=== PATIENT | female | born 1950 | race Caucasian/White ===

== ENCOUNTER 2021-10-26 16:33 | Emergency (ER) | payer MEDICARE, SELFPAY ==
[2021-10-26 16:59] VITALS: BP 168/101; PULSE 97; RESP 16; TEMP 36.6; O2SAT 98; BMI 47.7
--- NOTE | 2021-10-26 19:26 | ED.SKABFB ---
HPI - Skin/Abscess/Foreign Bdy General Chief complaint: Skin/Abscess/Foreign Body Stated complaint: Cellulitis in Leg and in Lt Forearm Time Seen by Provider: 10/26/21 19:26 Mode of arrival: Family Vehicle Related Data Home Medications Medication Instructions Recorded Confirmed Progesterone/Vitamin E 1 cre TP QHS ##0 12/23/11 (#PROGESTERONE ALL NATURAL 1000 MG-400 IU) clobetasol 0.05 % topical spray 0.05 % topical PRN #59 mL 12/23/11 (Clobex) Allergies Allergy/AdvReac Type Severity Reaction Status Date / Time Ampicillin Allergy Severe Hives, Uncoded 10/26/21 17:06 Itching, Swelling Cephalosporin Allergy Severe Hives, Uncoded 10/26/21 17:06 Itching , Swelling Morphine Allergy Severe Hives, Uncoded 10/26/21 17:06 Itching, Swelling PARSNIPS Allergy Severe mouth Uncoded 10/26/21 17:06 sores, swelling Penicillin Allergy Severe Hives, Uncoded 10/26/21 17:06 Itching, Swelling Propoxyphene Allergy Severe Hives, Uncoded 10/26/21 17:06 Itching, Swelling spices-fennel anise dill Allergy Severe Hives Uncoded 10/26/21 17:06 coriander(cilantro) faraz cumin SULFA (sulfonamide) Allergy Severe Hives, Uncoded 10/26/21 17:06 Itching, Swelling herbs cicely & chervil Allergy Intermediate Uncoded 10/26/21 17:06 CARROTS Allergy Unknown Uncoded 10/26/21 17:06 CELERY Allergy Unknown Uncoded 10/26/21 17:06 PARSLEY Allergy Unknown Uncoded 10/26/21 17:06 Patient History Social History Smoking Status: Never smoker Smoking Status: Never smoker Substance Use Type: does not use Exam Initial Vital Signs Initial Vital Signs: Vital Signs Temperature 98 F 10/26/21 16:59 Pulse Rate 97 H 10/26/21 16:59 Respiratory Rate 16 10/26/21 16:59 Blood Pressure 168/101 H 10/26/21 16:59 Pulse Oximetry 98 10/26/21 16:59 Oxygen Delivery Method 10/26/21 16:59 Course Vital Signs Vital signs: Vital Signs - 8 hr 10/26/21 16:59 Temperature 98 F Pulse Rate 97 H Respiratory Rate 16 Blood Pressure 168/101 H Pulse Oximetry 98 Oxygen Delivery Method Room Air Discharge Plan Departure Prescriptions: No Action clobetasol [Clobex] 125 ML spray,non-aerosol 0.05 % Topical PRN Qty: 59 Progesterone/Vitamin E (#PROGESTERONE ALL NATURAL 1000 MG-400 IU) 1 cre TP QHS Qty: 0 Referrals: Jana Weber MD [Primary Care Provider] -
--- NOTE | 2021-10-26 19:52 | ED_ITS ---
HPI - Skin/Abscess/Foreign Bdy <Janett Reyes, [facility] - Last Filed: 10/26/21 20:04> General Chief complaint: Skin/Abscess/Foreign Body Stated complaint: Cellulitis in Leg and in Lt Forearm Time Seen by Provider: 10/26/21 19:26 Mode of arrival: Family Vehicle History of Present Illness HPI narrative: This is a 71-year-old female with history of multiple allergies, obesity, prior cellulitis, venous stasis ulcers, hypothyroidism, who presents to the emergency department complaining of a rash on her lower left leg and her left forearm. She states the rash on her lower left leg is associated with her venous stasis ulcers, states that it is pruritic when her compression stockings are not on, she has been applying Betadine, clobetasol, and antibiotic ointment. She states that it has small bumps on it, she has a history of cellulitis, states it is warm to touch, and tender when she takes off her stockings. She states that it clears up after a couple of days of ointments, and then returns, she states that it has been bothersome and worsening for approximately 10 days. Patient endorses a rash on her left forearm which has been there only for two days, states it is pruritic, raised, erythematous, and she is concerned it is due to an allergy. Patient states that she is allergic to all eyes in medications, dyes in clothing, especially blue and green. She has multiple food allergies as well including herbs, dairy, and multiple antibiotic allergies including sulfa, penicillin, cephalosporins, and penicillins and additionally, morphine. She denies any shortness of breath, chest pain, difficulty breathing, wheezing, changes to her routine, fever, any exquisite tenderness or unilateral swelling of her lower extremities. She denies any history of diabetes, she is pleasant, quite talkative, denies any recent illness. Related Data Home Medications Medication Instructions Recorded Confirmed Progesterone/Vitamin E 1 cre TP QHS ##0 12/23/11 (#PROGESTERONE ALL NATURAL 1000 MG-400 IU) clobetasol 0.05 % topical spray 0.05 % topical PRN #59 mL 12/23/11 (Clobex) Previous Rx's Medication Instructions Recorded doxycycline hyclate 100 mg tablet 100 mg PO BID 7 days #14 tabs 07/29/22 hydroxyzine HCl 25 mg tablet 25 mg PO BID PRN itching #14 tabs 10/26/21 mupirocin 2 % topical ointment 1 applic topical BID PRN lower 10/26/21 extremity venous stasis #22 grams triamcinolone acetonide 0.1 % 1 applic topical DAILY 5 days a 10/26/21 topical ointment week for rash #80 grams Allergies Allergy/AdvReac Type Severity Reaction Status Date / Time Ampicillin Allergy Severe Hives, Uncoded 10/26/21 17:06 Itching, Swelling Cephalosporin Allergy Severe Hives, Uncoded 10/26/21 17:06 Itching , Swelling Morphine Allergy Severe Hives, Uncoded 10/26/21 17:06 Itching, Swelling PARSNIPS Allergy Severe mouth Uncoded 10/26/21 17:06 sores, swelling Penicillin Allergy Severe Hives, Uncoded 10/26/21 17:06 Itching, Swelling Propoxyphene Allergy Severe Hives, Uncoded 10/26/21 17:06 Itching, Swelling spices-fennel anise dill Allergy Severe Hives Uncoded 10/26/21 17:06 coriander(cilantro) faraz cumin SULFA (sulfonamide) Allergy Severe Hives, Uncoded 10/26/21 17:06 Itching, Swelling herbs cicely & chervil Allergy Intermediate Uncoded 10/26/21 17:06 CARROTS Allergy Unknown Uncoded 10/26/21 17:06 CELERY Allergy Unknown Uncoded 10/26/21 17:06 PARSLEY Allergy Unknown Uncoded 10/26/21 17:06 Review of Systems <GEOVANY Meng - Last Filed: 10/26/21 20:04> Review of Systems Narrative: General: denies fever, chills, malaise, sweats, fatigue Head/Neck: denies headache, neck pain, dizziness Eyes: denies visual changes, eye pain Cardio: denies chest pain, palpitations, edema Respiratory: denies dyspnea, cough, orthopnea GI: denies abdominal pain, nausea, vomiting, or diarrhea : denies dysuria, hematuria, urinary retention, frequency or incontinence MSK: denies joint pain, muscle weakness Skin: Endorses rash to her left lower extremity and to her left forearm with itching, denies any other skin lesions, states that she was using antibiotic ointment on her left lower extremity for venous stasis ulcers which have healed. Neuro: denies numbness, tingling Patient History <GEOVANY Meng - Last Filed: 10/26/21 20:04> Social History Smoking Status: Never smoker Smoking Status: Never smoker Substance Use Type: does not use Exam <GEOVANY Meng - Last Filed: 10/26/21 20:04> Narrative Exam Narrative: Independently reviewed vitals signs and nursing notes. General: cooperative, comfortable, in no acute distress, well groomed, obese Head: atraumatic, symmetrical facial expressions Neck: supple Eyes: equal round and reactive, EOMI, conjunctiva normal Nose: nares patent, no rhinorrhea Mouth/Throat: moist mucus membranes Cardiovascular: regular rate and rhythm, edematous lower extremities without pitting, warm extremities Respiratory: normal effort, able to speak in complete sentences, no audible wheezing, stridor, or rales. No retractions or tachypnea. GI: abdomen soft, nontender to palpation, nondistended, no masses, no exquisite tenderness with exam, without guarding or rebound. MSK: moves all extremities, neurovascularly intact, no weakness, normal tone Skin: brisk capillary refill, round 2 cm rash on volar aspect of left forearm which is pruritic, does not show any streaking or erythema which tracks proximally, this is most likely contact dermatitis related to exposure to an allergen, left lower extremity with mild maculopapular rash, mild warmth, no significant erythema but mildly pink, no tracking erythema proximally, no fluctuance, open wound, or drainage. No significant discoloration. Neuro: normal speech and cognition, A&O x3 Psych: mental status is grossly normal, congruent mood, normal affect, pleasant and cooperative Initial Vital Signs Initial Vital Signs: Vital Signs Temperature 98 F 10/26/21 16:59 Pulse Rate 97 H 10/26/21 16:59 Respiratory Rate 16 10/26/21 16:59 Blood Pressure 168/101 H 10/26/21 16:59 Pulse Oximetry 98 10/26/21 16:59 Oxygen Delivery Method 10/26/21 16:59 <Antony Givens DO - Last Filed: 10/31/21 00:36> Initial Vital Signs Initial Vital Signs: Vital Signs Temperature 98 F 10/26/21 16:59 Pulse Rate 97 H 10/26/21 16:59 Respiratory Rate 16 10/26/21 16:59 Blood Pressure 168/101 H 10/26/21 16:59 Pulse Oximetry 98 10/26/21 16:59 Oxygen Delivery Method 10/26/21 16:59 Course <GEOVANY Meng - Last Filed: 10/26/21 20:04> Orders Ordered: Discontinued Medications Doxycycline Hyclate (Doxycycline Hyclate 100 Mg Tablet) 100 mg PO NOW ONE Stop: 10/26/21 19:32 Last Admin: 10/26/21 20:27 Dose: 100 mg Documented By: DAVID Doxycycline Hyclate (Doxycycline Hyclate 100 Mg Tablet) 100 mg PO NOW ONE Stop: 10/26/21 20:01 Last Admin: 10/26/21 20:31 Dose: Not Given Documented By: DAVID Hydroxyzine Pamoate (Hydroxyzine Pamoate 25 Mg Capsule) 25 mg PO NOW ONE Stop: 10/26/21 19:34 Last Admin: 10/26/21 20:31 Dose: Not Given Documented By: DAVID Hydroxyzine Pamoate (Hydroxyzine Pamoate 25 Mg Capsule) 25 mg PO NOW ONE Stop: 10/26/21 20:01 Last Admin: 10/26/21 20:31 Dose: Not Given Documented By: DAVID Vital Signs Vital signs: Vital Signs - 8 hr 10/26/21 16:59 Temperature 98 F Pulse Rate 97 H Respiratory Rate 16 Blood Pressure 168/101 H Pulse Oximetry 98 Oxygen Delivery Method Room Air <Antony Givens DO - Last Filed: 10/31/21 00:36> Orders Ordered: Discontinued Medications Doxycycline Hyclate (Doxycycline Hyclate 100 Mg Tablet) 100 mg PO NOW ONE Stop: 10/26/21 19:32 Last Admin: 10/26/21 20:27 Dose: 100 mg Documented By: DAVID Doxycycline Hyclate (Doxycycline Hyclate 100 Mg Tablet) 100 mg PO NOW ONE Stop: 10/26/21 20:01 Last Admin: 10/26/21 20:31 Dose: Not Given Documented By: DAVID Hydroxyzine Pamoate (Hydroxyzine Pamoate 25 Mg Capsule) 25 mg PO NOW ONE Stop: 10/26/21 19:34 Last Admin: 10/26/21 20:31 Dose: Not Given Documented By: DAVID Hydroxyzine Pamoate (Hydroxyzine Pamoate 25 Mg Capsule) 25 mg PO NOW ONE Stop: 10/26/21 20:01 Last Admin: 10/26/21 20:31 Dose: Not Given Documented By: DAVID Vital Signs Vital signs: Vital Signs - 8 hr 10/26/21 16:59 Temperature 98 F Pulse Rate 97 H Respiratory Rate 16 Blood Pressure 168/101 H Pulse Oximetry 98 Oxygen Delivery Method Room Air MDM - Skin/Abscess/Foreign Bdy <Janett Reyes, [employer] - Last Filed: 10/26/21 20:04> MDM Narrative Medical decision making narrative: This is a pleasant 71-year-old female who has a history of multiple allergies including all dyes,, multiple antibiotic allergies, food allergies, and history of cellulitis in the lower extremity who presents to the emergency department with 10 days of left lower extremity rash which is concerning for cellulitis, and her left forearm rash which has only been there for two days and is well- circumscribed in a 2 cm wheal, is mildly raised and erythematous. Patient appears to have cellulitis on the left lower extremity, it is warm to palpation, edematous but she is obese so it is difficult to assess but is not pitting, she is wearing compression stockings, does not have any open wounds on her left lower extremity, mild warmth and pink in color, pruritic, and patient has been t reating at home with topical iodine and antibiotic ointment. She states that she is out of the antibiotic ointment soon and is concerned about pruritus. Her left forearm appears to be contact dermatitis, she thinks that she could have come into contact with any of her allergens easily she states this happens frequently. She was prescribed triamcinolone cream for the contact dermatitis, mupirocin ointment for her left lower extremity rash and for any open wounds that present, hydroxyzine for her pruritus, and doxycycline b.i.d. dosing for seven days for cellulitis. She is allergic to most all other antibiotics. Encouraged patient to stay hydrated, elevate her legs and continue wear compression stockings, keep her legs clean, dry, and to return to the emergency department for any worsening of the swelling and pain, sensation changes fever, or any other significant concern. She is afebrile, does not have any other signs of systemic illness, she is not nauseated or having any vomiting, she is pleasant, denies any significant pruritus at this time, she was treated with hydroxyzine in the emergency department and doxycycline and encouraged to follow-up with her primary care provider. Patient is appropriate and amenable to discharge home. Vital signs are stable on repeat examination is unremarkable. Patient has been informed of results. Patient has been given strict return to ER precautions for any new or worsening symptoms. Patient understands to follow up closely with outpatient providers as instructed. Patient understands plan and agrees to discharge home. All questions and concerns answered at this time. Discharge Plan Departure Patient Disposition: Home Clinical Impression: Cellulitis Qualifiers: Site of cellulitis: extremity Site of cellulitis of extremity: lower extremity Laterality: left Qualified Code(s): L03.116 - Cellulitis of left lower limb Contact dermatitis Qualifiers: Contact dermatitis type: allergic Contact dermatitis trigger: dye Qualified Code(s): L23.4 - Allergic contact dermatitis due to dyes Instructions: DI for Cellulitis -- Adult, Contact Dermatitis Activity Restrictions/Additional Instructions: *You have been diagnosed with cellulitis of your left lower extremity and likely contact dermatitis of the left forearm. Please apply a small combination of the mupirocin ointment combined with the steroid ointment. Continue to use compression stockings on your lower extremities, remember to changes in daily and to apply your ointments morning and night. Please take the weekend off of your steroid ointment, your skin would like a vacation for a couple of days. Please take the antibiotic twice a day for the next seven days, this will help treat your leg cellulitis and follow-up with your regular doctor at your next scheduled follow-up. Please elevate your legs frequently, continue to stay active as best as you are able, avoid any allergens as best as you can, and return to the emergency department for any worsening or unilateral swelling of your lower extremities. I hope you feel better soon. *What to do: *Please continue to take your regular medications as directed. [ x] New medication prescriptions sent to your pharmacy: [ [facility]] [ ] New medication written as a paper prescription [ ] No new medications given *Please follow up with your primary care provider in 2-3 days, call for an appointment. Let them know you were seen in the Emergency Department and that we asked that you be seen for follow-up. We will electronically transmit a record of today's note if your PCP is in our system *If you do not have a primary care provider please contact [phone] to establish care with one of the [facility] primary care providers. *Return to Emergency Department if you should have any new, worsening or concerning symptoms, such as [fever greater than 101F, chills, worsening pain, persistent vomiting or other bothersome symptoms] Prescriptions: New mupirocin 2 % ointment 1 applic topical BID PRN (Reason: lower extremity venous stasis) Qty: 22 2RF hydroxyzine HCl 25 mg tablet 25 mg PO BID PRN (Reason: itching) Qty: 14 0RF triamcinolone acetonide 0.1 % ointment 1 applic topical DAILY Qty: 80 0RF doxycycline hyclate 100 mg tablet 100 mg PO BID 7 Days Qty: 14 0RF No Action clobetasol [Clobex] 125 ML spray,non-aerosol 0.05 % Topical PRN Qty: 59 Progesterone/Vitamin E (#PROGESTERONE ALL NATURAL 1000 MG-400 IU) 1 cre TP QHS Qty: 0 Referrals: Beau Allen DO [Family Provider] - Jana Weber MD [Primary Care Provider] - Visit Report Forms: Patient Portal/API <Antony Givens DO - Last Filed: 10/31/21 00:36> [facility] Attestation: I was immediately available in the department for consultation. This documentation has been reviewed and I agree with assessment and plan. Supervised by Antony Givens DO
--- NOTE | 2021-10-26 20:06 | PC.NURSE ---
Pt wearing compression hose, she doesn't like to take them down because it makes her leg itch. assessment deferred to provider
[2021-10-26] MEDS: DOXYCYCLINE HYCLATE 100 MG TABLET PO (20:27)
[2021-10-26 20:59] VITALS: PULSE 69; RESP 16; TEMP 36.5; O2SAT 100
== END 2021-10-26 20:45 | disposition home or self-care (01) ==
PROVIDERS: Emergency Provider Nurse Practitioner Critical Care Medicine; Family Provider Family Medicine; PCP Family Medicine
DX: L03.116 Cellulitis of left lower limb (principal); L23.4 Allergic contact dermatitis due to dyes
CPT/HCPCS: 99283

== ENCOUNTER 2022-05-03 14:39 | Inpatient (IN) | payer MEDICARE, SELFPAY ==
[2022-05-03] VITALS (32 sets, daily range): BP systolic 114–182; BP diastolic 65–106; PULSE 57–177; RESP 13–56; TEMP 36.3–36.5; O2SAT 96–99; BMI 44.3; BMI 44.2
--- NOTE | 2022-05-03 14:46 | DI.RAD.S_ITS ---
PROCEDURE: XR CHEST 1V INDICATIONS: eval for PNA TECHNIQUE: One view of the chest was acquired. COMPARISON: [facility], , CHEST 2 VIEW, 12/23/2011, 20:54. FINDINGS: Surgical changes and devices: Cholecystectomy clips. Lungs and pleura: Lungs are clear. No pleural effusions or pneumothorax. Mediastinum: Mediastinal contours appear normal. Heart size is enlarged. Bones and chest wall: No suspicious bony lesions. Overlying soft tissues appear unremarkable. IMPRESSION: No acute pulmonary process. Dictated by: Pippa Watson M.D. on 05/03/2022 at 16:04 Approved by: Pippa Watson M.D. on 05/03/2022 at 16:05
--- NOTE | 2022-05-03 15:04 | ED.FALL ---
HPI - Fall General Chief Complaint: Fall Stated Complaint: GLF, Afib RVR, weakness Time Seen by Provider: 05/03/22 14:42 Source: patient and EMS Mode of arrival: EMS Limitations: no limitations History of Present Illness HPI Narrative: Patient is a 71-year-old female who is brought in by EMS for evaluation. She was found by police after they were called for a welfare check. The patient missed her therapist appointment today which apparently she ?never misses ?the therapist contacted the police. They found the patient on the floor lying on her abdomen. She was wedged between the toilet and the wall. Patient states that she fell while using the toilet but this was several days ago. I have heard reports anywhere from 7-12 days that she potentially has been lying on the floor. She states she has not been able to move. She has not had anything to eat or drink during this time. She did hit her head but no loss of consciousness. She currently reports that she is pain with movement of any of her extremities but nothing specific. She is not on blood thinners. She denies headache. She is not had any of her medicines during this time. She stated that she just lost her balance which caused her to fall. Related Data Home Medications Medication Instructions Recorded Confirmed Progesterone/Vitamin E 1 cre TP QHS ##0 12/23/11 (#PROGESTERONE ALL NATURAL 1000 MG-400 IU) clobetasol 0.05 % topical spray 0.05 % topical PRN #59 mL 12/23/11 (Clobex) Previous Rx's Medication Instructions Recorded hydroxyzine HCl 25 mg tablet 25 mg PO BID PRN itching #14 tabs 10/26/21 mupirocin 2 % topical ointment 1 applic topical BID PRN lower 10/26/21 extremity venous stasis #22 grams triamcinolone acetonide 0.1 % 1 applic topical DAILY 5 days a 10/26/21 topical ointment week for rash #80 grams Allergies Allergy/AdvReac Type Severity Reaction Status Date / Time ampicillin Allergy Severe HIVES, Verified 05/03/22 16:10 ITCHING, SWELLING Cephalosporins Allergy Severe HIVES, Verified 05/03/22 16:10 ITCHING, SWELLING morphine Allergy Severe HIVES, Verified 05/03/22 16:10 ITCHING, SWELLING Penicillins Allergy Severe HIVES, Verified 05/03/22 16:10 ITCHING, SWELLING propoxyphene Allergy Severe HIVES, Verified 05/03/22 16:10 ITCHING, SWELLING Sulfa (Sulfonamide Allergy Severe HIVES, Verified 05/03/22 16:10 Antibiotics) ITCHING, SWELLING PARSNIPS Allergy Severe mouth Uncoded 05/03/22 14:51 sores, swelling spices-fennel anise dill Allergy Severe Hives Uncoded 05/03/22 14:51 coriander(cilantro) faraz cumin herbs cicely & chervil Allergy Intermediate Uncoded 05/03/22 14:51 CARROTS Allergy Unknown Uncoded 05/03/22 14:51 CELERY Allergy Unknown Uncoded 05/03/22 14:51 PARSLEY Allergy Unknown Uncoded 05/03/22 14:51 Review of Systems Review of Systems ROS Unobtainable: All systems reviewed & are unremarkable except as noted in HPI and below Patient History Medical History Hypothyroidism Social History household members: none Smoking Status: Never smoker alcohol intake: former Smoking Status: Never smoker Substance Use Type: does not use Exam Initial Vital Signs Initial Vital Signs: Vital Signs Pulse Rate 173 H 05/03/22 14:49 Respiratory Rate 27 H 05/03/22 14:49 Pulse Oximetry 98 05/03/22 14:49 Const General: disheveled and ill appearing HENMT Head: normal to inspection and normocephalic Face and sinus: normal facial exam Mouth: moist mucous membranes (Dry mucous membranes) Eyes Other: Bruising around right eye Chest Other: Tenderness to palpation throughout the chest. Resp Effort & Inspection: normal respiratory effort Auscultation: clear to auscultation bilaterally Cardio Rate: regular rate Rhythm: regular rhythm GI Inspection: normal to inspection and non-distended Palpation: soft and No guarding Other: Excoriation and perineum Skin Other: Skin breakdown on her chest and abdomen and specifically on her upper thighs and perineum. There are blisters. Was also skin breakdown on the top of her left foot. Neuro General: patient alert, patient awake and patient oriented x3 Speech: speech normal Extrem Other: Discomfort with movement of all 4 extremities. Psych Appearance: disheveled Scores GCS Andres coma scale eye opening: Spontaneous [place] coma scale verbal response: Orientated [place] coma scale motor response: Obey commands Andres coma scale total score: 15 Nexus Score for C-Spine Focal Neurologic deficit present: No Midline spinal tenderness present: No Altered level of conciousness present: No Intoxication present: No Distracting Injury Present: No Nexus Criteria for C-spine: 0 Course Orders Ordered: ED Orders 05/03/22 14:46 XR chest 1V Stat 05/03/22 14:58 EKG-12 Lead Stat 05/03/22 15:12 Complete Blood Count AUTO DIFF Stat Lactate (Lactic Acid) Stat Procalcitonin Stat TSH [Thyroid Stimulating Hormone] Stat 05/03/22 15:40 Ictotest Urine Stat Urinalysis and Microscopic Stat Urine Culture Stat tox [Urine Drug Screen, Rapid] Stat 05/03/22 16:10 CT head/brain wo con Stat 05/03/22 16:11 Comprehensive Metabolic Panel Stat Lipase Stat Magnesium Urgent Troponin & CK Cardiac Panel Stat 05/03/22 16:13 COVID19 -Nasal RAPID/Pre-Proc Stat 05/03/22 17:22 Consult to Occupational Therapy Evaluate & Treat 05/03/22 17:25 Hepatitis Acute Panel Urgent Prothrombin Time INR Urgent 05/04/22 05:00 CBC Auto Diff [Complete Blood Count AUTO DIFF] DAILY Procalcitonin Urgent 05/05/22 05:00 CBC Auto Diff [Complete Blood Count AUTO DIFF] DAILY 05/06/22 05:00 CBC Auto Diff [Complete Blood Count AUTO DIFF] DAILY Acetaminophen (Acetaminophen 325 Mg Tablet) 325 mg PO Q6H PRN PRN Reason: Fever/Mild Pain (1-3) Heparin Sodium (Porcine) (Heparin 5,000 Unit/Ml Vial) 5,000 unit SUBCUT BID VENKATESH Vancomycin HCl/Dextrose (Vancomycin) 1,500 mg in 300 mls @ 200 mls/hr IV NOW ONE Stop: 05/03/22 18:29 Last Admin: 05/03/22 17:27 Dose: 200 mls/hr Documented By: RL Dextrose (Dextrose 5% Water) 1,000 mls @ 150 mls/hr IV CONT VENKATESH Levofloxacin (Levaquin) 750 mg in 150 mls @ 100 mls/hr IV Q24H VENKATESH Melatonin (Melatonin 3 Mg Tablet) 6 mg PO BEDTIME PRN PRN Reason: Insomnia Naloxone HCl (Naloxone 0.4 Mg/Ml Vial) 0.2 mg IV Q2MIN PRN PRN Reason: Opiate Reversal Polyethylene Glycol (Polyethylene Glycol 3350 17 Gm Powd.Pack) 17 gm PO DAILY PRN PRN Reason: Constipation Sennosides (Sennosides 8.6 Mg Tablet) 8.6 mg PO BID PRN PRN Reason: Constipation Discontinued Medications Sodium Chloride (Normal Saline 0.9%) 1,000 mls @ 125 mls/hr IV CONT VENKATESH Last Infusion: 05/03/22 16:54 Dose: 0 mls/hr Documented By: Infusion: 05/03/22 16:29 Dose: 125 mls/hr Documented By: Infusion: 05/03/22 16:14 Dose: 0 mls/hr Documented By: Admin: 05/03/22 15:58 Dose: 125 mls/hr Documented By: MAYUR Vancomycin HCl (Vancomycin) 1,000 mg in 200 mls @ 200 mls/hr IV NOW ONE Stop: 05/03/22 16:58 Last Infusion: 05/03/22 17:28 Dose: 0 mls/hr Documented By: Infusion: 05/03/22 16:29 Dose: 200 mls/hr Documented By: Infusion: 05/03/22 16:14 Dose: 0 mls/hr Documented By: Admin: 05/03/22 16:10 Dose: 200 mls/hr Documented By: MAYUR Lactated Ringer's (Lactated Ringers) 1,000 mls @ 2,000 mls/hr IV BOLUS ONE Stop: 05/03/22 17:51 Vital Signs Vital signs: Vital Signs - 8 hr 05/03/22 14:51 05/03/22 14:49 05/03/22 15:00 Temperature 97.5 F L Pulse Rate 175 H 173 H 168 H Respiratory Rate 19 27 H 28 H Blood Pressure 141/97 H Pulse Oximetry 99 98 98 Oxygen Delivery Method Room Air 05/03/22 15:30 05/03/22 15:40 05/03/22 15:40 Temperature Pulse Rate 173 H 176 H Respiratory Rate 56 H 26 H Blood Pressure 114/85 Pulse Oximetry 98 98 Oxygen Delivery Method 05/03/22 15:51 05/03/22 15:51 05/03/22 16:00 Temperature Pulse Rate 169 H 173 H Respiratory Rate 27 H 33 H Blood Pressure 182/106 H Pulse Oximetry 99 99 Oxygen Delivery Method 05/03/22 16:01 05/03/22 16:01 05/03/22 16:10 Temperature Pulse Rate 176 H Respiratory Rate 28 H Blood Pressure 159/85 H 147/100 H Pulse Oximetry 99 Oxygen Delivery Method 05/03/22 16:10 05/03/22 16:27 05/03/22 16:27 Temperature Pulse Rate 167 H 174 H Respiratory Rate 26 H 21 Blood Pressure 144/100 H Pulse Oximetry 99 Oxygen Delivery Method 05/03/22 16:30 05/03/22 16:30 05/03/22 16:40 Temperature Pulse Rate 170 H 177 H Respiratory Rate 13 24 Blood Pressure 121/69 Pulse Oximetry 97 Oxygen Delivery Method 05/03/22 16:40 05/03/22 16:50 05/03/22 16:50 Temperature Pulse Rate 174 H Respiratory Rate 24 Blood Pressure 140/78 145/79 H Pulse Oximetry Oxygen Delivery Method 05/03/22 17:00 05/03/22 17:01 05/03/22 17:01 Temperature Pulse Rate 173 H 170 H Respiratory Rate 25 H 25 H Blood Pressure 159/72 H Pulse Oximetry 97 98 Oxygen Delivery Method 05/03/22 17:10 05/03/22 17:10 Temperature Pulse Rate 152 H Respiratory Rate 23 Blood Pressure 155/73 H Pulse Oximetry 98 Oxygen Delivery Method MDM - Fall Lab Data Attestation: I reviewed the patient's lab results. 05/03/22 15:12 05/03/22 16:11 Labs: Lab Results 05/03/22 05/03/22 05/03/22 Range/Units 15:12 15:12 15:12 WBC 29.0 H (4.5-11.0) X10^3/uL RBC 6.19 H (4.0-5.2) X10^6/uL Hgb 18.7 H (12.0-16.0) g/dL Hct 55.3 H (36-46) % MCV 89.4 (80-100) fL MCH 30.2 (26-34) PG MCHC 33.7 (30-36) % RDW 14.0 (11.6-14.8) % Plt Count 306 (150-400) X10^3/uL Neut % (Auto) Not Reportable Lymph % (Auto) Not Reportable [place] % (Auto) Not Reportable Eos % (Auto) Not Reportable Baso % (Auto) Not Reportable Lymph # (Auto) Not Reportable [place] # (Auto) Not Reportable Baso # (Auto) Not Reportable Total Counted 100 Seg Neutrophils % 82.0 H (38-70) % Band Neutrophils % 5.0 (3-7) % Lymphocytes % (Manual) 6.0 L (25-45) % Monocytes % (Manual) 7.0 (2-11) % Neutrophils # (Manual) 06702 H (9552-6467) /uL Differential Comment 2 RBC Morphology See Poikilocytosis 1+ H Sodium (137-145) mmol/L Potassium (3.4-5.1) mmol/L Chloride (98-107) mmol/L Carbon Dioxide (22-32) mmol/L BUN (7-17) mg/dL Creatinine (0.52-1.04) mg/dL Estimated GFR (>60) mL/min BUN/Creatinine Ratio (6-22) Glucose (80-110) mg/dL Lactate 3.4 H (0.7-2.1) mmol/L Calcium (8.4-10.2) mg/dL Total Bilirubin (0.2-1.3) mg/dL AST (14-36) IU/L ALT (<35) IU/L Alkaline Phosphatase (38-126) U/L Total Creatine Kinase (30-135) U/L CK-MB (CK-2) (<2.37) ng/mL CK-MB (CK-2) Rel Index (1.5-5.0) % Troponin I (0.01-0.034) ng/mL Total Protein (6.3-8.2) g/dL Albumin (3.5-5.0) g/dL Globulin (1.7-4.1) g/dL Albumin/Globulin Ratio (1.0-2.8) Lipase (23-300) U/L Procalcitonin 1.26 H (<0.5) ng/mL TSH (0.47-4.68) uIU/mL Urine Color Urine Appearance Urine pH (4.5-8.0) Ur Specific [place] (1.000-1.035) Urine Protein (Negative) Urine Glucose (UA) (Negative) g/dL Urine Ketones (NEGATIVE) Urine Occult Blood (Negative) Urine Nitrate (Negative) Urine Bilirubin (NEGATIVE) Ur Bilirubin Confirm (Negative) Urine Urobilinogen (0.2) E.U./dL Ur Leukocyte Esterase (NEGATIVE) Urine RBC (0-5/HPF) Urine WBC (0-5/HPF) Ur Squamous Epith Cells (0-5/HPF) Urine Bacteria (None) Hyaline Casts (None) Granular Casts (None) Ur Culture Indicated? SARS-CoV-2 (PCR) (Negative) 05/03/22 05/03/22 05/03/22 Range/Units 15:12 15:40 16:11 WBC (4.5-11.0) X10^3/uL RBC (4.0-5.2) X10^6/uL Hgb (12.0-16.0) g/dL Hct (36-46) % MCV (80-100) fL MCH (26-34) PG MCHC (30-36) % RDW (11.6-14.8) % Plt Count (150-400) X10^3/uL Neut % (Auto) Lymph % (Auto) [place] % (Auto) Eos % (Auto) Baso % (Auto) Lymph # (Auto) [place] # (Auto) Baso # (Auto) Total Counted Seg Neutrophils % (38-70) % Band Neutrophils % (3-7) % Lymphocytes % (Manual) (25-45) % Monocytes % (Manual) (2-11) % Neutrophils # (Manual) (7846-2767) /uL Differential Comment RBC Morphology Poikilocytosis Sodium 151 H (137-145) mmol/L Potassium 3.7 (3.4-5.1) mmol/L Chloride 112 H (98-107) mmol/L Carbon Dioxide 24 (22-32) mmol/L BUN 85 H (7-17) mg/dL Creatinine 1.72 H (0.52-1.04) mg/dL Estimated GFR 32 L (>60) mL/min BUN/Creatinine Ratio 49.4 H (6-22) Glucose 144 H (80-110) mg/dL Lactate (0.7-2.1) mmol/L Calcium 8.8 (8.4-10.2) mg/dL Total Bilirubin 1.9 H (0.2-1.3) mg/dL AST 140 H (14-36) IU/L ALT 150 H (<35) IU/L Alkaline Phosphatase 158 H (38-126) U/L Total Creatine Kinase 856 H (30-135) U/L CK-MB (CK-2) 8.33 H (<2.37) ng/mL CK-MB (CK-2) Rel Index 1.0 L (1.5-5.0) % Troponin I 0.014 (0.01-0.034) ng/mL Total Protein 7.6 (6.3-8.2) g/dL Albumin 3.6 (3.5-5.0) g/dL Globulin 4.0 (1.7-4.1) g/dL Albumin/Globulin Ratio 0.9 L (1.0-2.8) Lipase 144 (23-300) U/L Procalcitonin (<0.5) ng/mL TSH 1.02 (0.47-4.68) uIU/mL Urine Color Yellow Urine Appearance Sl cloudy Urine pH 6.0 (4.5-8.0) Ur Specific [place] 1.015 (1.000-1.035) Urine Protein Trace H (Negative) Urine Glucose (UA) Negative (Negative) g/dL Urine Ketones Negative (NEGATIVE) Urine Occult Blood Trace-intact (Negative) Urine Nitrate Negative (Negative) Urine Bilirubin 1+ H (NEGATIVE) Ur Bilirubin Confirm Negative (Negative) Urine Urobilinogen 1.0 (0.2) E.U./dL Ur Leukocyte Esterase Negative (NEGATIVE) Urine RBC 1-5/hpf (0-5/HPF) Urine WBC 1-5/hpf (0-5/HPF) Ur Squamous Epith Cells 5-10 /hpf H (0-5/HPF) Urine Bacteria None seen (None) Hyaline Casts 10-30/lpf (None) Granular Casts 1-5/lpf (None) Ur Culture Indicated? Cult not indicated SARS-CoV-2 (PCR) (Negative) 05/03/22 Range/Units 16:13 WBC (4.5-11.0) X10^3/uL RBC (4.0-5.2) X10^6/uL Hgb (12.0-16.0) g/dL Hct (36-46) % MCV (80-100) fL MCH (26-34) PG MCHC (30-36) % RDW (11.6-14.8) % Plt Count (150-400) X10^3/uL Neut % (Auto) Lymph % (Auto) [place] % (Auto) Eos % (Auto) Baso % (Auto) Lymph # (Auto) [place] # (Auto) Baso # (Auto) Total Counted Seg Neutrophils % (38-70) % Band Neutrophils % (3-7) % Lymphocytes % (Manual) (25-45) % Monocytes % (Manual) (2-11) % Neutrophils # (Manual) (2863-5099) /uL Differential Comment RBC Morphology Poikilocytosis Sodium (137-145) mmol/L Potassium (3.4-5.1) mmol/L Chloride (98-107) mmol/L Carbon Dioxide (22-32) mmol/L BUN (7-17) mg/dL Creatinine (0.52-1.04) mg/dL Estimated GFR (>60) mL/min BUN/Creatinine Ratio (6-22) Glucose (80-110) mg/dL Lactate (0.7-2.1) mmol/L Calcium (8.4-10.2) mg/dL Total Bilirubin (0.2-1.3) mg/dL AST (14-36) IU/L ALT (<35) IU/L Alkaline Phosphatase (38-126) U/L Total Creatine Kinase (30-135) U/L CK-MB (CK-2) (<2.37) ng/mL CK-MB (CK-2) Rel Index (1.5-5.0) % Troponin I (0.01-0.034) ng/mL Total Protein (6.3-8.2) g/dL Albumin (3.5-5.0) g/dL Globulin (1.7-4.1) g/dL Albumin/Globulin Ratio (1.0-2.8) Lipase (23-300) U/L Procalcitonin (<0.5) ng/mL TSH (0.47-4.68) uIU/mL Urine Color Urine Appearance Urine pH (4.5-8.0) Ur Specific [place] (1.000-1.035) Urine Protein (Negative) Urine Glucose (UA) (Negative) g/dL Urine Ketones (NEGATIVE) Urine Occult Blood (Negative) Urine Nitrate (Negative) Urine Bilirubin (NEGATIVE) Ur Bilirubin Confirm (Negative) Urine Urobilinogen (0.2) E.U./dL Ur Leukocyte Esterase (NEGATIVE) Urine RBC (0-5/HPF) Urine WBC (0-5/HPF) Ur Squamous Epith Cells (0-5/HPF) Urine Bacteria (None) Hyaline Casts (None) Granular Casts (None) Ur Culture Indicated? SARS-CoV-2 (PCR) Negative (Negative) Imaging Data Chest x-ray: Radiologist's Impression: [address] [address] XRay Report Signed Patient: Karlos Boyd MR#: [id number] : 1950 Acct:[id number] Age/Sex: 71 / F Date of Service: 05/03/22 Loc: ED Accession Number: [id number] ?? Procedure: XR chest 1V Ordering Provider: Antonio Aponte D.O. PROCEDURE:? XR CHEST 1V ? INDICATIONS:? eval for PNA ? TECHNIQUE:? One view of the chest was acquired.? ? COMPARISON:? Located Within [facility], , CHEST 2 VIEW, 12/23/2011, 20:54. ? FINDINGS:? ? Surgical changes and devices:? Cholecystectomy clips. ? Lungs and pleura:? Lungs are clear.? No pleural effusions or pneumothorax.? ? Mediastinum:? Mediastinal contours appear normal.? Heart size is enlarged. ? Bones and chest wall:? No suspicious bony lesions.? Overlying soft tissues appear unremarkable.? ? IMPRESSION:? No acute pulmonary process. ? ? Dictated by: Pippa Watson M.D. on 05/03/2022 at 16:04 ? ? Approved by: Pippa Watson M.D. on 05/03/2022 at 16:05? CT scan - head: Radiologist's Impression: [address] [address] [address] Scan Report Signed Patient: Karlos Boyd MR#: [id number] : 1950 Acct:[id number] Age/Sex: 71 / F Date of Service: 05/03/22 Loc: ED Accession Number: [id number] ?? Procedure: CT head/brain wo con Ordering Provider: Antonio Aponte D.O. PROCEDURE:? CT HEAD/BRAIN WO CON ? INDICATIONS:? Fall, lying on ground for 1 week ? TECHNIQUE:? Noncontrast 4.5 mm thick angled axial sections acquired from the foramen magnum to the vertex, with coronal and sagittal reformats.? For radiation dose reduction, the following was used:? automated exposure control, adjustment of mA and/or kV according to patient size.? ? COMPARISON:? Located Within [facility], CR, XR CHEST 1V, 05/03/2022, 15:42. ? FINDINGS:? Image quality:? Excellent.? ? CSF spaces:? Basal cisterns are patent.? No extra-axial fluid collections.? The ventricles are symmetric in size and shape.? ? Brain:? No intracranial bleeds or masses.? There is cerebral volume loss for age, with resultant ventricular and sulcal prominence.? There are periventricular and deep white matter chronic small vessel ischemic changes.? There is intracranial internal carotid artery atherosclerosis.? ? Skull and face:? Calvarium and visualized facial bones appear intact, without suspicious lesions.? Incidental note is made of hyperostosis frontalis. This is not considered to be pathologic in a woman of this age. ? Sinuses:? Visualized sinuses and mastoids are clear.? ? ? IMPRESSION:? No acute intracranial hemorrhage is seen.? ? No acute intracranial process is seen.? ? No findings of recent infarction are detected. ? If there is strong clinical suspicion for an acute stroke, please consider a brain MRI for further evaluation, as it is more sensitive (assuming that there is no contraindication to MRI). ? ? Dictated by: Collin Summers M.D. on 05/03/2022 at 15:35 ? ? Approved by: Collin Summers M.D. on 05/03/2022 at 15:37? ECG Data Attestation: I personally reviewed and interpreted this ECG as follows: Interpretation: Atrial fibrillation Ventricular rate 158 LVH PVC Normal QTC Nonspecific ST T wave changes MDM Narrative Medical decision making narrative: Patient is clinically dehydrated. Is tachycardic. Dry mucous membranes. Is obviously been lying on her abdomen for some time she is skin breakdown both over her chest and abdomen. She is been urinating and defecating on herself and she has skin breakdown over her anterior thighs. She is bruising around the right side of her eye. She is no neck pain. Is cleared by nexus criteria. Head CT shows no signs of acute pathology. She is in AFib with rapid ventricular response. I suspect that this is from dehydration, the stress of the event and the fact she is not taken any of her medications for the past several days. Patient is hemoconcentrated demonstrated by her leukocytosis and also her elevation in hemoglobin and hematocrit. She was given fluids. Patient has multiple drug allergies. Was given vancomycin although I feel that most her derangements today are the result of the trauma in the NSAIDs did not specifically an infection. Patient does require admission to the hospital. Discussed the case with Dr. Adames who will admit. Discussed need for admission with the patient. She expressed understanding and agreement. Discharge Plan Departure Patient Disposition: Admitted As Inpatient Clinical Impression: Fall, Dehydration, Skin breakdown, Hypernatremia Admit Date/Time: 05/03/22 17:24 Admit Provider: Aguilar Adames
[2022-05-03 15:44] LABS: Hematocrit 55.3 % (36-46); Hemoglobin 18.7 g/dL (12.0-16.0); Mean Corpuscular HGB Conc 33.7 % (30-36); Mean Corpuscular Hemoglobin 30.2 PG (26-34); Mean Corpuscular Volume 89.4 fL (80-100); Platelet Count 306 X10^3/uL (150-400); Red Blood Cell Count 6.19 X10^6/uL (4.0-5.2)
[2022-05-03 15:46] LABS: Add Manual Diff / Slide Review YES
--- NOTE | 2022-05-03 15:46 | PC.NURSE ---
Patient has wide spread skin breakdown to abdomen, bilateral upper thighs, gluteal cleft and groin with slough present. Also has skin breakdown to bilateral breast with other various areas of bruising/erythema/edema.
[2022-05-03 15:52] LABS: Appearance Urine UA SL CLOUDY; Bilirubin Urine UA 1+ (NEGATIVE); Color Urine UA YELLOW; Glucose Urine UA NEGATIVE (Negative); Ketones Urine UA NEGATIVE (NEGATIVE); Leukocyte Esterase Urine UA NEGATIVE (NEGATIVE); Nitrite Urine UA NEGATIVE (Negative); Occult Blood Urine UA TRACE-INTACT (Negative); Protein Urine UA TRACE (Negative); Specific Gravity Urine UA 1.015 (1.000-1.035)
[2022-05-03 15:55] LABS: Lactate (Lactic Acid) 3.4 mmol/L (0.7-2.1)
[2022-05-03 15:55] LABS: Ictotest Urine Negative (Negative)
[2022-05-03] MEDS: SODIUM CHLORIDE 0.9% 1,000 ML 125 ML IV (15:58)
[2022-05-03 16:08] LABS: Neutrophils Absolute Manual 25230 /uL (3000-5900); Total Cells Counted 100
[2022-05-03 16:09] LABS: Bacteria Urine None Seen; Culture Indicated Urine Cult Not Indicated; Granular Casts Urine 1-5/LPF; Hyaline Casts Urine 10-30/LPF; RBC Urine 1-5/HPF (0-5/HPF); Squamous Epithelial Cell Urine 5-10 /HPF (0-5/HPF); WBC Urine 1-5/HPF (0-5/HPF)
[2022-05-03 16:09] LABS: Poikilocytosis 1+
[2022-05-03] MEDS: VANCOMYCIN 1,000 MG/200 ML PIGGYBACK 200 MG IV (16:10)
--- NOTE | 2022-05-03 16:10 | DI.CT.S_ITS ---
PROCEDURE: CT HEAD/BRAIN WO CON INDICATIONS: Fall, lying on ground for 1 week TECHNIQUE: Noncontrast 4.5 mm thick angled axial sections acquired from the foramen magnum to the vertex, with coronal and sagittal reformats. For radiation dose reduction, the following was used: automated exposure control, adjustment of mA and/or kV according to patient size. COMPARISON: [facility], CR, XR CHEST 1V, 05/03/2022, 15:42. FINDINGS: Image quality: Excellent. CSF spaces: Basal cisterns are patent. No extra-axial fluid collections. The ventricles are symmetric in size and shape. Brain: No intracranial bleeds or masses. There is cerebral volume loss for age, with resultant ventricular and sulcal prominence. There are periventricular and deep white matter chronic small vessel ischemic changes. There is intracranial internal carotid artery atherosclerosis. Skull and face: Calvarium and visualized facial bones appear intact, without suspicious lesions. Incidental note is made of hyperostosis frontalis. This is not considered to be pathologic in a woman of this age. Sinuses: Visualized sinuses and mastoids are clear. IMPRESSION: No acute intracranial hemorrhage is seen. No acute intracranial process is seen. No findings of recent infarction are detected. If there is strong clinical suspicion for an acute stroke, please consider a brain MRI for further evaluation, as it is more sensitive (assuming that there is no contraindication to MRI). Dictated by: Collin Summers M.D. on 05/03/2022 at 15:35 Approved by: Collin Summers M.D. on 05/03/2022 at 15:37
[2022-05-03 16:11] LABS: Morphology Comment 2; RBC Morphology See
[2022-05-03 16:15] LABS: Procalcitonin 1.26 ng/mL (<0.5)
[2022-05-03 16:29] LABS: Thyroid Stimulating Hormone 1.02 uIU/mL (0.47-4.68)
[2022-05-03 16:34] LABS: Alanine Aminotransferase 150 IU/L (<35); Albumin 3.6 g/dL (3.5-5.0); Albumin Globulin Ratio 0.9 (1.0-2.8); Alkaline Phosphatase 158 U/L (38-126); Aspartate Aminotransferase 140 IU/L (14-36); BUN Creatinine Ratio 49.4 (6-22); Bilirubin Total 1.9 mg/dL (0.2-1.3); Blood Urea Nitrogen 85 mg/dL (7-17); Calcium 8.8 mg/dL (8.4-10.2); Carbon Dioxide 24 mmol/L (22-32); Chloride 112 mmol/L (98-107); Creatine Kinase 856 U/L (30-135); Estimated Glomerular Filt Rate 32 mL/min (>60); Glucose 144 mg/dL (80-110); HEMOLYSIS < 15 (0-50); Lipase 144 U/L (23-300); Potassium 3.7 mmol/L (3.4-5.1); Sodium 151 mmol/L (137-145); Total Protein 7.6 g/dL (6.3-8.2)
[2022-05-03 16:34] LABS: COVID19 -Nasal RAPID Negative (Negative)
[2022-05-03 16:45] LABS: Troponin I 0.014 ng/mL (0.01-0.034)
[2022-05-03 16:50] LABS: Creatine Kinase MB 8.33 ng/mL (<2.37)
[2022-05-03 17:27] LABS: Reflexed Lactate in 2 Hours Y
[2022-05-03] MEDS: VANCOMYCIN 1,500 MG/300 ML PIGGYBACK 200 MG IV (17:27)
--- NOTE | 2022-05-03 17:32 | PM.HP.1 ---
History of Present Illness History of Present Illness Date Patient Seen: 05/03/22 Chief complaint: GLF, Afib RVR, weakness Narrative: Karlos Boyd is a 71-year-old female with past medical history of A-fib not on anticoag, obesity, venous insufficiency, hypothyroidism who presents via EMS after being found face down for 5 days in the bathroom at home. Patient states she lives alone and friday evening she went to get off the toilet and her legs gave out and she slumped to the floor. She lay there facedown unable to get up and unable to call anyone. She then laid there for approx 5 days before her therapist notified police to check on her because she hadn't heard from her which was abnormal. Police found her on the floor covered in feces and urine. Patient says she hadn't eaten or had any water during that time. She is unsure why she couldn't get up, just saying she was weak. She denies CP, vomiting, abd pain, dysuria or diarrhea. In the ED found to have Na 151, Cr 1.72, LA 3.4, CK of 856, procal 1.26 and WBC 29, Hgb 18. Given vanco due to multiple abx allergies. Started on fluids. Patient History Medical History Hypothyroidism Family & Social History Safety & Behavioral: Feels Safe in Current Yes Environment Tobacco & Substance use: Smoking Status Never smoker Substance Use Type does not use Meds Home Medications and Allergies Home Medications Medication Instructions Recorded Confirmed Type Progesterone/Vitamin E 1 cre TP QHS ##0 12/23/11 History (#PROGESTERONE ALL NATURAL 1000 MG-400 IU) clobetasol 0.05 % topical spray 0.05 % topical PRN #59 mL 12/23/11 History (Clobex) hydroxyzine HCl 25 mg tablet 25 mg PO BID PRN itching #14 tabs 10/26/21 Rx mupirocin 2 % topical ointment 1 applic topical BID PRN lower 10/26/21 Rx extremity venous stasis #22 grams triamcinolone acetonide 0.1 % 1 applic topical DAILY 5 days a 10/26/21 Rx topical ointment week for rash #80 grams Allergies Allergy/AdvReac Type Severity Reaction Status Date / Time ampicillin Allergy Severe HIVES, Verified 05/03/22 16:10 ITCHING, SWELLING Cephalosporins Allergy Severe HIVES, Verified 05/03/22 16:10 ITCHING, SWELLING morphine Allergy Severe HIVES, Verified 05/03/22 16:10 ITCHING, SWELLING Penicillins Allergy Severe HIVES, Verified 05/03/22 16:10 ITCHING, SWELLING propoxyphene Allergy Severe HIVES, Verified 05/03/22 16:10 ITCHING, SWELLING Sulfa (Sulfonamide Allergy Severe HIVES, Verified 05/03/22 16:10 Antibiotics) ITCHING, SWELLING PARSNIPS Allergy Severe mouth Uncoded 05/03/22 14:51 sores, swelling spices-fennel anise dill Allergy Severe Hives Uncoded 05/03/22 14:51 coriander(cilantro) faraz cumin herbs cicely & chervil Allergy Intermediate Uncoded 05/03/22 14:51 CARROTS Allergy Unknown Uncoded 05/03/22 14:51 CELERY Allergy Unknown Uncoded 05/03/22 14:51 PARSLEY Allergy Unknown Uncoded 05/03/22 14:51 Review of Systems Review of Systems Narrative: All other systems reviewed with the patient and are negative unless otherwise stated. Exam Vital Signs (past 8 hours): - 05/03/22 14:51 05/03/22 14:49 05/03/22 15:00 Temperature 97.5 F L Pulse Rate 175 H 173 H 168 H Respiratory Rate 19 27 H 28 H Blood Pressure 141/97 H Pulse Oximetry 99 98 98 Oxygen Delivery Method Room Air 05/03/22 15:30 05/03/22 15:40 05/03/22 15:40 Temperature Pulse Rate 173 H 176 H Respiratory Rate 56 H 26 H Blood Pressure 114/85 Pulse Oximetry 98 98 Oxygen Delivery Method 05/03/22 15:51 05/03/22 15:51 05/03/22 16:00 Temperature Pulse Rate 169 H 173 H Respiratory Rate 27 H 33 H Blood Pressure 182/106 H Pulse Oximetry 99 99 Oxygen Delivery Method 05/03/22 16:01 05/03/22 16:01 05/03/22 16:10 Temperature Pulse Rate 176 H Respiratory Rate 28 H Blood Pressure 159/85 H 147/100 H Pulse Oximetry 99 Oxygen Delivery Method 05/03/22 16:10 05/03/22 16:27 05/03/22 16:27 Temperature Pulse Rate 167 H 174 H Respiratory Rate 26 H 21 Blood Pressure 144/100 H Pulse Oximetry 99 Oxygen Delivery Method 05/03/22 16:30 05/03/22 16:30 05/03/22 16:40 Temperature Pulse Rate 170 H 177 H Respiratory Rate 13 24 Blood Pressure 121/69 Pulse Oximetry 97 Oxygen Delivery Method 05/03/22 16:40 05/03/22 16:50 05/03/22 16:50 Temperature Pulse Rate 174 H Respiratory Rate 24 Blood Pressure 140/78 145/79 H Pulse Oximetry Oxygen Delivery Method 05/03/22 17:00 05/03/22 17:01 05/03/22 17:01 Temperature Pulse Rate 173 H 170 H Respiratory Rate 25 H 25 H Blood Pressure 159/72 H Pulse Oximetry 97 98 Oxygen Delivery Method 05/03/22 17:10 05/03/22 17:10 Temperature Pulse Rate 152 H Respiratory Rate 23 Blood Pressure 155/73 H Pulse Oximetry 98 Oxygen Delivery Method Oxygen Delivery Method Room Air Narrative Exam Narrative: GEN: odd affect, alert and oriented HEENT: moist mucous membranes, PERRL NECK: trachea midline, no JVD CV: tachycardic and irregularly irregular, no murmurs PULM: clear bilaterally ABD: soft, nontender, nondistended, no organomegaly SKIN: large areas of superficial skin breakdown on inner thighs, multiple excoriations on abd and chest EXT: slightly mottled extremities, with no edema NEURO: awake, alert, oriented, no focal deficits Objective Labs 05/03/22 15:12 05/03/22 16:11 Labs: Laboratory Results - last 24 hr 05/03/22 05/03/22 05/03/22 15:12 15:12 15:12 WBC 29.0 H RBC 6.19 H Hgb 18.7 H Hct 55.3 H MCV 89.4 MCH 30.2 MCHC 33.7 RDW 14.0 Plt Count 306 Neut % (Auto) Not Reportable Lymph % (Auto) Not Reportable [place] % (Auto) Not Reportable Eos % (Auto) Not Reportable Baso % (Auto) Not Reportable Lymph # (Auto) Not Reportable [place] # (Auto) Not Reportable Baso # (Auto) Not Reportable Total Counted 100 Seg Neutrophils % 82.0 H Band Neutrophils % 5.0 Lymphocytes % (Manual) 6.0 L Monocytes % (Manual) 7.0 Neutrophils # (Manual) 46192 H Differential Comment 2 RBC Morphology See Poikilocytosis 1+ H Sodium Potassium Chloride Carbon Dioxide BUN Creatinine Estimated GFR BUN/Creatinine Ratio Glucose Lactate 3.4 H Calcium Total Bilirubin AST ALT Alkaline Phosphatase Total Creatine Kinase CK-MB (CK-2) CK-MB (CK-2) Rel Index Troponin I Total Protein Albumin Globulin Albumin/Globulin Ratio Lipase Procalcitonin 1.26 H TSH Urine Color Urine Appearance Urine pH Ur Specific [place] Urine Protein Urine Glucose (UA) Urine Ketones Urine Occult Blood Urine Nitrate Urine Bilirubin Ur Bilirubin Confirm Urine Urobilinogen Ur Leukocyte Esterase Urine RBC Urine WBC Ur Squamous Epith Cells Urine Bacteria Hyaline Casts Granular Casts Ur Culture Indicated? SARS-CoV-2 (PCR) 05/03/22 05/03/22 05/03/22 15:12 15:40 16:11 WBC RBC Hgb Hct MCV MCH MCHC RDW Plt Count Neut % (Auto) Lymph % (Auto) [place] % (Auto) Eos % (Auto) Baso % (Auto) Lymph # (Auto) [place] # (Auto) Baso # (Auto) Total Counted Seg Neutrophils % Band Neutrophils % Lymphocytes % (Manual) Monocytes % (Manual) Neutrophils # (Manual) Differential Comment RBC Morphology Poikilocytosis Sodium 151 H Potassium 3.7 Chloride 112 H Carbon Dioxide 24 BUN 85 H Creatinine 1.72 H Estimated GFR 32 L BUN/Creatinine Ratio 49.4 H Glucose 144 H Lactate Calcium 8.8 Total Bilirubin 1.9 H AST 140 H ALT 150 H Alkaline Phosphatase 158 H Total Creatine Kinase 856 H CK-MB (CK-2) 8.33 H CK-MB (CK-2) Rel Index 1.0 L Troponin I 0.014 Total Protein 7.6 Albumin 3.6 Globulin 4.0 Albumin/Globulin Ratio 0.9 L Lipase 144 Procalcitonin TSH 1.02 Urine Color Yellow Urine Appearance Sl cloudy Urine pH 6.0 Ur Specific [place] 1.015 Urine Protein Trace H Urine Glucose (UA) Negative Urine Ketones Negative Urine Occult Blood Trace-intact Urine Nitrate Negative Urine Bilirubin 1+ H Ur Bilirubin Confirm Negative Urine Urobilinogen 1.0 Ur Leukocyte Esterase Negative Urine RBC 1-5/hpf Urine WBC 1-5/hpf Ur Squamous Epith Cells 5-10 /hpf H Urine Bacteria None seen Hyaline Casts 10-30/lpf Granular Casts 1-5/lpf Ur Culture Indicated? Cult not indicated SARS-CoV-2 (PCR) 05/03/22 16:13 WBC RBC Hgb Hct MCV MCH MCHC RDW Plt Count Neut % (Auto) Lymph % (Auto) [place] % (Auto) Eos % (Auto) Baso % (Auto) Lymph # (Auto) [place] # (Auto) Baso # (Auto) Total Counted Seg Neutrophils % Band Neutrophils % Lymphocytes % (Manual) Monocytes % (Manual) Neutrophils # (Manual) Differential Comment RBC Morphology Poikilocytosis Sodium Potassium Chloride Carbon Dioxide BUN Creatinine Estimated GFR BUN/Creatinine Ratio Glucose Lactate Calcium Total Bilirubin AST ALT Alkaline Phosphatase Total Creatine Kinase CK-MB (CK-2) CK-MB (CK-2) Rel Index Troponin I Total Protein Albumin Globulin Albumin/Globulin Ratio Lipase Procalcitonin TSH Urine Color Urine Appearance Urine pH Ur Specific [place] Urine Protein Urine Glucose (UA) Urine Ketones Urine Occult Blood Urine Nitrate Urine Bilirubin Ur Bilirubin Confirm Urine Urobilinogen Ur Leukocyte Esterase Urine RBC Urine WBC Ur Squamous Epith Cells Urine Bacteria Hyaline Casts Granular Casts Ur Culture Indicated? SARS-CoV-2 (PCR) Negative Assessment & Plan Assessment & Plan narrative: # ground level fall resulting in lying on the floor for up to 5 days -patient says her legs gave out, no neuro deficits on exam -CK 856 -check urine drug screen, tylenol level and ethanol -wound care of skin breakdown on legs and belly -PT/OT evals # AFib RVR -heart rate initially 170s in ED but improved to 100's with fluid -patient not on blood thinners or metoprolol, takes B12 for her A-fib -[id number] of 2, for women can avoid anticoag -consider starting metoprolol if HR still >110 at rest -tele # hypernatremia -151 on admission, likely due to severe dehydration -give 2 L LR bolus -continue D5 at 150 cc/hour -daily BMP's # DESMOND -Cr 1.72 on admission, due to hypovolemia -fluids as above -avoid nephrotoxic agents -daily BMP's # lactic acidemia -LA 3.4 on admission -trend until normal with fluids # leukocytosis -WBC 29 on admission, procal 1.26 -likely volume contraction but will treat with antibiotics just in case given elevated procal -patient has multiple aortic allergies including penicillin and cephalosporins -IV Levaquin daily -follow-up blood cultures -UA negative Code status is full code. COVID negative. DVT prophylaxis with heparin subQ. Proxy is her son. I have reviewed home meds and used all available resources to reconcile the home meds. This patient will be admitted as inpatient and will require greater than 2 midnights of hospital time to treat AFib RVR and hypernatremia. Time Spent With Patient Critical Care time: I spent a total of [] minutes of critical care time on this patient's care today; this time is exclusive of procedural time.
[2022-05-03 18:18] LABS: Magnesium 2.8 mg/dL (1.6-2.3)
[2022-05-03 18:24] LABS: Ethanol (ETOH) < 10 mg/dL
[2022-05-03 18:26] LABS: UR Morphine/Opiate cutoff 300 Negative (Negative); Ur Creatinine Normal (Normal); Ur Specific Gravity Normal (Normal); Urine Amphetamines Negative (Negative); Urine Barbiturates Negative (Negative); Urine Benzodiazepines Negative (Negative); Urine Cocaine Negative (Negative); Urine MDMA Negative (Negative); Urine Methadone Negative (Negative); Urine Methamphetamines Negative (Negative); Urine Oxycodone Negative (Negative); Urine Phencyclidine Negative (Negative); Urine Tetrahydrocannabinol Negative (Negative); Urine Tricyclic Antidepressant Negative (Negative); Urine pH Normal (Normal)
--- NOTE | 2022-05-03 20:31 | PC.NURSE ---
Patient placed on telemetry and notified by [employer] OPERATOR, [place], that patient was in afib RVR with rate in 160's. GEOVANY Davila, notified and order received for IV diltiazem and to transfer to the ICU.
--- NOTE | 2022-05-03 20:51 | P.TELICUCN_ITS ---
History of Present Illness Consult details IF CAMERA ACTIVATED, patient seen via real-time interactive audiovisual communication: Camera activated Chief complaint: GLF, Afib RVR, weakness Consent obtained for tele-basket turner care: Yes Patient Location: ICU Provider location (State): [place] Other participants/roles: MALIKA Davila [facility] Medical History Hypothyroidism Social History household members: none Smoking Status: Never smoker alcohol intake: former Current Medications Current Medications Medications: Home Medications Progesterone/Vitamin E (#PROGESTERONE ALL NATURAL 1000 MG-400 IU) 1 cre TP QHS ##0 12/23/11 [History] clobetasol 0.05 % topical spray (Clobex) 0.05 % topical PRN #59 mL 12/23/11 [History] hydroxyzine HCl 25 mg tablet 25 mg PO BID PRN itching #14 tabs 10/26/21 [Rx] mupirocin 2 % topical ointment 1 applic topical BID PRN lower extremity venous stasis #22 grams 10/26/21 [Rx] triamcinolone acetonide 0.1 % topical ointment 1 applic topical DAILY 5 days a week for rash #80 grams 10/26/21 [Rx] Exam Vital Signs (past 8 hours): - 05/03/22 14:51 05/03/22 14:49 05/03/22 15:00 Temperature 97.5 F L Pulse Rate 175 H 173 H 168 H Respiratory Rate 19 27 H 28 H Blood Pressure 141/97 H Pulse Oximetry 99 98 98 Oxygen Delivery Method Room Air Oxygen Flow Rate 05/03/22 15:30 05/03/22 15:40 05/03/22 15:40 Temperature Pulse Rate 173 H 176 H Respiratory Rate 56 H 26 H Blood Pressure 114/85 Pulse Oximetry 98 98 Oxygen Delivery Method Oxygen Flow Rate 05/03/22 15:51 05/03/22 15:51 05/03/22 16:00 Temperature Pulse Rate 169 H 173 H Respiratory Rate 27 H 33 H Blood Pressure 182/106 H Pulse Oximetry 99 99 Oxygen Delivery Method Oxygen Flow Rate 05/03/22 16:01 05/03/22 16:01 05/03/22 16:10 Temperature Pulse Rate 176 H Respiratory Rate 28 H Blood Pressure 159/85 H 147/100 H Pulse Oximetry 99 Oxygen Delivery Method Oxygen Flow Rate 05/03/22 16:10 05/03/22 16:27 05/03/22 16:27 Temperature Pulse Rate 167 H 174 H Respiratory Rate 26 H 21 Blood Pressure 144/100 H Pulse Oximetry 99 Oxygen Delivery Method Oxygen Flow Rate 05/03/22 16:30 05/03/22 16:30 05/03/22 16:40 Temperature Pulse Rate 170 H 177 H Respiratory Rate 13 24 Blood Pressure 121/69 Pulse Oximetry 97 Oxygen Delivery Method Oxygen Flow Rate 05/03/22 16:40 05/03/22 16:50 05/03/22 16:50 Temperature Pulse Rate 174 H Respiratory Rate 24 Blood Pressure 140/78 145/79 H Pulse Oximetry Oxygen Delivery Method Oxygen Flow Rate 05/03/22 17:00 05/03/22 17:01 05/03/22 17:01 Temperature Pulse Rate 173 H 170 H Respiratory Rate 25 H 25 H Blood Pressure 159/72 H Pulse Oximetry 97 98 Oxygen Delivery Method Oxygen Flow Rate 05/03/22 17:10 05/03/22 17:10 05/03/22 18:00 Temperature 97.5 F L Pulse Rate 152 H 68 Respiratory Rate 23 18 Blood Pressure 155/73 H 143/98 H Pulse Oximetry 98 98 Oxygen Delivery Method Oxygen Flow Rate 0 05/03/22 20:16 Temperature 97.4 F L Pulse Rate 57 L Respiratory Rate 20 Blood Pressure 149/83 H Pulse Oximetry 99 Oxygen Delivery Method Oxygen Flow Rate 0 Oxygen Delivery Method Room Air Oxygen Flow Rate 0 Objective Labs 05/03/22 15:12 05/03/22 16:11 Labs: Laboratory Results - last 24 hr 05/03/22 05/03/22 05/03/22 15:12 15:12 15:12 WBC 29.0 H RBC 6.19 H Hgb 18.7 H Hct 55.3 H MCV 89.4 MCH 30.2 MCHC 33.7 RDW 14.0 Plt Count 306 Neut % (Auto) Not Reportable Lymph % (Auto) Not Reportable [place] % (Auto) Not Reportable Eos % (Auto) Not Reportable Baso % (Auto) Not Reportable Lymph # (Auto) Not Reportable [place] # (Auto) Not Reportable Baso # (Auto) Not Reportable Total Counted 100 Seg Neutrophils % 82.0 H Band Neutrophils % 5.0 Lymphocytes % (Manual) 6.0 L Monocytes % (Manual) 7.0 Neutrophils # (Manual) 97053 H Differential Comment 2 RBC Morphology See Poikilocytosis 1+ H Sodium Potassium Chloride Carbon Dioxide BUN Creatinine Estimated GFR BUN/Creatinine Ratio Glucose Lactate 3.4 H Calcium Magnesium Total Bilirubin AST ALT Alkaline Phosphatase Total Creatine Kinase CK-MB (CK-2) CK-MB (CK-2) Rel Index Troponin I Total Protein Albumin Globulin Albumin/Globulin Ratio Lipase Procalcitonin 1.26 H TSH Urine Color Urine Appearance Urine pH Ur Specific [place] Urine Protein Urine Glucose (UA) Urine Ketones Urine Occult Blood Urine Nitrate Urine Bilirubin Ur Bilirubin Confirm Urine Urobilinogen Ur Leukocyte Esterase Urine RBC Urine WBC Ur Squamous Epith Cells Urine Bacteria Hyaline Casts Granular Casts Ur Culture Indicated? U Opiates 300ng/mL cut Ur Oxycodone Screen Urine Methadone Screen Ur Barbiturates Screen U Tricyclic Antidepress Ur Phencyclidine Scrn Ur Amphetamines Screen U Methamphetamines Scrn Ur MDMA Scrn (Ecstasy) U Benzodiazepines Scrn Urine Cocaine Screen U Marijuana (THC) Screen Ethyl Alcohol SARS-CoV-2 (PCR) 05/03/22 05/03/22 05/03/22 15:12 15:40 15:40 WBC RBC Hgb Hct MCV MCH MCHC RDW Plt Count Neut % (Auto) Lymph % (Auto) [place] % (Auto) Eos % (Auto) Baso % (Auto) Lymph # (Auto) [place] # (Auto) Baso # (Auto) Total Counted Seg Neutrophils % Band Neutrophils % Lymphocytes % (Manual) Monocytes % (Manual) Neutrophils # (Manual) Differential Comment RBC Morphology Poikilocytosis Sodium Potassium Chloride Carbon Dioxide BUN Creatinine Estimated GFR BUN/Creatinine Ratio Glucose Lactate Calcium Magnesium Total Bilirubin AST ALT Alkaline Phosphatase Total Creatine Kinase CK-MB (CK-2) CK-MB (CK-2) Rel Index Troponin I Total Protein Albumin Globulin Albumin/Globulin Ratio Lipase Procalcitonin TSH 1.02 Urine Color Yellow Urine Appearance Sl cloudy Urine pH 6.0 Ur Specific [place] 1.015 Urine Protein Trace H Urine Glucose (UA) Negative Urine Ketones Negative Urine Occult Blood Trace-intact Urine Nitrate Negative Urine Bilirubin 1+ H Ur Bilirubin Confirm Negative Urine Urobilinogen 1.0 Ur Leukocyte Esterase Negative Urine RBC 1-5/hpf Urine WBC 1-5/hpf Ur Squamous Epith Cells 5-10 /hpf H Urine Bacteria None seen Hyaline Casts 10-30/lpf Granular Casts 1-5/lpf Ur Culture Indicated? Cult not indicated U Opiates 300ng/mL cut Negative Ur Oxycodone Screen Negative Urine Methadone Screen Negative Ur Barbiturates Screen Negative U Tricyclic Antidepress Negative Ur Phencyclidine Scrn Negative Ur Amphetamines Screen Negative U Methamphetamines Scrn Negative Ur MDMA Scrn (Ecstasy) Negative U Benzodiazepines Scrn Negative Urine Cocaine Screen Negative U Marijuana (THC) Screen Negative Ethyl Alcohol SARS-CoV-2 (PCR) 05/03/22 05/03/22 05/03/22 16:11 16:11 16:11 WBC RBC Hgb Hct MCV MCH MCHC RDW Plt Count Neut % (Auto) Lymph % (Auto) [place] % (Auto) Eos % (Auto) Baso % (Auto) Lymph # (Auto) [place] # (Auto) Baso # (Auto) Total Counted Seg Neutrophils % Band Neutrophils % Lymphocytes % (Manual) Monocytes % (Manual) Neutrophils # (Manual) Differential Comment RBC Morphology Poikilocytosis Sodium 151 H Potassium 3.7 Chloride 112 H Carbon Dioxide 24 BUN 85 H Creatinine 1.72 H Estimated GFR 32 L BUN/Creatinine Ratio 49.4 H Glucose 144 H Lactate Calcium 8.8 Magnesium 2.8 H Total Bilirubin 1.9 H AST 140 H ALT 150 H Alkaline Phosphatase 158 H Total Creatine Kinase 856 H CK-MB (CK-2) 8.33 H CK-MB (CK-2) Rel Index 1.0 L Troponin I 0.014 Total Protein 7.6 Albumin 3.6 Globulin 4.0 Albumin/Globulin Ratio 0.9 L Lipase 144 Procalcitonin TSH Urine Color Urine Appearance Urine pH Ur Specific [place] Urine Protein Urine Glucose (UA) Urine Ketones Urine Occult Blood Urine Nitrate Urine Bilirubin Ur Bilirubin Confirm Urine Urobilinogen Ur Leukocyte Esterase Urine RBC Urine WBC Ur Squamous Epith Cells Urine Bacteria Hyaline Casts Granular Casts Ur Culture Indicated? U Opiates 300ng/mL cut Ur Oxycodone Screen Urine Methadone Screen Ur Barbiturates Screen U Tricyclic Antidepress Ur Phencyclidine Scrn Ur Amphetamines Screen U Methamphetamines Scrn Ur MDMA Scrn (Ecstasy) U Benzodiazepines Scrn Urine Cocaine Screen U Marijuana (THC) Screen Ethyl Alcohol < 10 SARS-CoV-2 (PCR) 05/03/22 16:13 WBC RBC Hgb Hct MCV MCH MCHC RDW Plt Count Neut % (Auto) Lymph % (Auto) [place] % (Auto) Eos % (Auto) Baso % (Auto) Lymph # (Auto) [place] # (Auto) Baso # (Auto) Total Counted Seg Neutrophils % Band Neutrophils % Lymphocytes % (Manual) Monocytes % (Manual) Neutrophils # (Manual) Differential Comment RBC Morphology Poikilocytosis Sodium Potassium Chloride Carbon Dioxide BUN Creatinine Estimated GFR BUN/Creatinine Ratio Glucose Lactate Calcium Magnesium Total Bilirubin AST ALT Alkaline Phosphatase Total Creatine Kinase CK-MB (CK-2) CK-MB (CK-2) Rel Index Troponin I Total Protein Albumin Globulin Albumin/Globulin Ratio Lipase Procalcitonin TSH Urine Color Urine Appearance Urine pH Ur Specific [place] Urine Protein Urine Glucose (UA) Urine Ketones Urine Occult Blood Urine Nitrate Urine Bilirubin Ur Bilirubin Confirm Urine Urobilinogen Ur Leukocyte Esterase Urine RBC Urine WBC Ur Squamous Epith Cells Urine Bacteria Hyaline Casts Granular Casts Ur Culture Indicated? U Opiates 300ng/mL cut Ur Oxycodone Screen Urine Methadone Screen Ur Barbiturates Screen U Tricyclic Antidepress Ur Phencyclidine Scrn Ur Amphetamines Screen U Methamphetamines Scrn Ur MDMA Scrn (Ecstasy) U Benzodiazepines Scrn Urine Cocaine Screen U Marijuana (THC) Screen Ethyl Alcohol SARS-CoV-2 (PCR) Negative Assessment & Plan Assessment & Plan narrative: patient seen with bedside nurse, case d/w Provider Giovanni 71 year old female admitted to ICU with FALL, found down acute renal failure afib/aflutter rhabdomyolysis hypernatremia dehydraiton/volume depletion currenlty HR 150s to 180s bp stable afebrile, metnal status intact WBC 22, procal 1.9 ck 856 sodium 151 creat .18 elevated LFTs lactate 3.[address] head -ve# suggest -neruochecks/seizure precatuions -ivf -repeat labs now, check ck/abg/lactate -serial ekg/echo/trop -cardizem push followed by cardizem drip, po meds when can tolerate diet -abx, check cxs, if -ve can dc in 3 days -monitor ins/outs -replace lytes prn -wound care, consider surgery eval for wounds, would do dialy dressing changes -keep glucose 140-180s -gi/dvt ppx, consider full ac for afib, ok to hold for now -please call eICU if condition changes total ccm time 45 mins Time Spent With Patient Critical Care time: I spent a total of [] minutes of critical care time on this patient's care today; this time is exclusive of procedural time.
[2022-05-03 20:55] LABS: INR 1.4 (0.9-1.3); Prothrombin Time 16.4 SECONDS (10.1-12.7)
[2022-05-03 21:01] LABS: Lactate 2HR (Lactic Acid Rflx) 2.3 mmol/L (0.7-2.1); Magnesium 2.6 mg/dL (1.6-2.3)
[2022-05-03 21:14] LABS: Troponin I 0.017 ng/mL (0.01-0.034)
[2022-05-03] MEDS: LACTATED RINGERS 1,000 ML 2000 ML IV (21:17)
[2022-05-03] MEDS: dilTIAZem 5 MG/ML SDV 10 MG IV (21:17)
[2022-05-03 21:27] LABS: BUN Creatinine Ratio 53.9 (6-22); Blood Urea Nitrogen 76 mg/dL (7-17); Calcium 8.4 mg/dL (8.4-10.2); Carbon Dioxide 17 mmol/L (22-32); Chloride 116 mmol/L (98-107); Estimated Glomerular Filt Rate 40 mL/min (>60); Glucose 137 mg/dL (80-110); HEMOLYSIS 23 (0-50); Potassium 3.7 mmol/L (3.4-5.1); Sodium 148 mmol/L (137-145)
[2022-05-03] MEDS: METOPROLOL IR 25 MG TABLET PO (21:47)
[2022-05-03] MEDS: LACTATED RINGERS 1,000 ML 125 ML IV (21:48)
--- NOTE | 2022-05-03 21:55 | P.PN_ITS ---
Subjective Subjective Date Patient Seen: 05/03/22 Time Patient Seen: 21:55 Interval history: Patient was reported to be in Afib/RVR. Per report from the day team, she stated she received B12 injections to control it. She was given a one time order of diltiazem, and request to be transferred to the ICU for closer monitoring. She was reportedly down for 5 days after falling in her bathroom and admitted for suspected rhabdo. Exam Vital Signs (past 8 hours): - 05/03/22 14:51 05/03/22 14:49 05/03/22 15:00 Temperature 97.5 F L Pulse Rate 175 H 173 H 168 H Respiratory Rate 19 27 H 28 H Blood Pressure 141/97 H Pulse Oximetry 99 98 98 Oxygen Delivery Method Room Air Oxygen Flow Rate 05/03/22 15:30 05/03/22 15:40 05/03/22 15:40 Temperature Pulse Rate 173 H 176 H Respiratory Rate 56 H 26 H Blood Pressure 114/85 Pulse Oximetry 98 98 Oxygen Delivery Method Oxygen Flow Rate 05/03/22 15:51 05/03/22 15:51 05/03/22 16:00 Temperature Pulse Rate 169 H 173 H Respiratory Rate 27 H 33 H Blood Pressure 182/106 H Pulse Oximetry 99 99 Oxygen Delivery Method Oxygen Flow Rate 05/03/22 16:01 05/03/22 16:01 05/03/22 16:10 Temperature Pulse Rate 176 H Respiratory Rate 28 H Blood Pressure 159/85 H 147/100 H Pulse Oximetry 99 Oxygen Delivery Method Oxygen Flow Rate 05/03/22 16:10 05/03/22 16:27 05/03/22 16:27 Temperature Pulse Rate 167 H 174 H Respiratory Rate 26 H 21 Blood Pressure 144/100 H Pulse Oximetry 99 Oxygen Delivery Method Oxygen Flow Rate 05/03/22 16:30 05/03/22 16:30 05/03/22 16:40 Temperature Pulse Rate 170 H 177 H Respiratory Rate 13 24 Blood Pressure 121/69 Pulse Oximetry 97 Oxygen Delivery Method Oxygen Flow Rate 05/03/22 16:40 05/03/22 16:50 05/03/22 16:50 Temperature Pulse Rate 174 H Respiratory Rate 24 Blood Pressure 140/78 145/79 H Pulse Oximetry Oxygen Delivery Method Oxygen Flow Rate 05/03/22 17:00 05/03/22 17:01 05/03/22 17:01 Temperature Pulse Rate 173 H 170 H Respiratory Rate 25 H 25 H Blood Pressure 159/72 H Pulse Oximetry 97 98 Oxygen Delivery Method Oxygen Flow Rate 05/03/22 17:10 05/03/22 17:10 05/03/22 18:00 Temperature 97.5 F L Pulse Rate 152 H 68 Respiratory Rate 23 18 Blood Pressure 155/73 H 143/98 H Pulse Oximetry 98 98 Oxygen Delivery Method Oxygen Flow Rate 0 05/03/22 20:16 05/03/22 21:13 05/03/22 17:20 Temperature 97.4 F L 97.7 F Pulse Rate 57 L Respiratory Rate 20 Blood Pressure 149/83 H 138/79 Pulse Oximetry 99 Oxygen Delivery Method Oxygen Flow Rate 0 05/03/22 17:20 05/03/22 17:30 05/03/22 17:30 Temperature Pulse Rate 166 H 169 H Respiratory Rate 25 H 25 H Blood Pressure 155/70 H Pulse Oximetry 96 96 Oxygen Delivery Method Oxygen Flow Rate 05/03/22 20:45 05/03/22 20:46 05/03/22 20:46 Temperature Pulse Rate 74 85 Respiratory Rate 40 H Blood Pressure 140/98 H Pulse Oximetry 98 97 Oxygen Delivery Method Oxygen Flow Rate 05/03/22 20:57 05/03/22 20:57 05/03/22 21:00 Temperature Pulse Rate 140 H 128 H Respiratory Rate 21 25 H Blood Pressure 151/105 H Pulse Oximetry 98 97 Oxygen Delivery Method Oxygen Flow Rate 05/03/22 21:02 05/03/22 21:02 Temperature Pulse Rate 119 H Respiratory Rate 22 Blood Pressure 147/65 H Pulse Oximetry 97 Oxygen Delivery Method Oxygen Flow Rate Oxygen Delivery Method Room Air Oxygen Flow Rate 0 Narrative Exam Narrative: Gen: Alert, oriented, morbidly obese 71 y.o. female, in a great deal of pain when moved HEENT: normocephalic, atraumatic, conjunctiva clear, sclera non-icteric, oral mucosa pink and moist Neck: supple, full ROM, no JVD, trachea is midline Resp: Lungs CTA, non-labored breathing CV: Tachy and irregular, no murmur or rubs Abd: soft, non-tender, normoactive BTs Skin: multiple large areas of excoriations in her lower abdomen, inner thighs extending to her knees, unknown how deep wounds are. Neuro: Alert and oriented X 4 w/no focal deficits. Speech clear and coherent. Extremities: moves all 4 extremities, is ambulatory, negative Hermelinda?s sign Psyche: normal mood and affect. Objective Labs 05/03/22 15:12 05/03/22 20:20 Labs: Laboratory Results - last 24 hr 05/03/22 05/03/22 05/03/22 15:12 15:12 15:12 WBC 29.0 H RBC 6.19 H Hgb 18.7 H Hct 55.3 H MCV 89.4 MCH 30.2 MCHC 33.7 RDW 14.0 Plt Count 306 Neut % (Auto) Not Reportable Lymph % (Auto) Not Reportable [place] % (Auto) Not Reportable Eos % (Auto) Not Reportable Baso % (Auto) Not Reportable Lymph # (Auto) Not Reportable [place] # (Auto) Not Reportable Baso # (Auto) Not Reportable Total Counted 100 Seg Neutrophils % 82.0 H Band Neutrophils % 5.0 Lymphocytes % (Manual) 6.0 L Monocytes % (Manual) 7.0 Neutrophils # (Manual) 15365 H Differential Comment 2 RBC Morphology See Poikilocytosis 1+ H PT INR Sodium Potassium Chloride Carbon Dioxide BUN Creatinine Estimated GFR BUN/Creatinine Ratio Glucose Lactate 3.4 H Calcium Magnesium Total Bilirubin AST ALT Alkaline Phosphatase Total Creatine Kinase CK-MB (CK-2) CK-MB (CK-2) Rel Index Troponin I Total Protein Albumin Globulin Albumin/Globulin Ratio Lipase Procalcitonin 1.26 H TSH Urine Color Urine Appearance Urine pH Ur Specific [place] Urine Protein Urine Glucose (UA) Urine Ketones Urine Occult Blood Urine Nitrate Urine Bilirubin Ur Bilirubin Confirm Urine Urobilinogen Ur Leukocyte Esterase Urine RBC Urine WBC Ur Squamous Epith Cells Urine Bacteria Hyaline Casts Granular Casts Ur Culture Indicated? U Opiates 300ng/mL cut Ur Oxycodone Screen Urine Methadone Screen Ur Barbiturates Screen U Tricyclic Antidepress Ur Phencyclidine Scrn Ur Amphetamines Screen U Methamphetamines Scrn Ur MDMA Scrn (Ecstasy) U Benzodiazepines Scrn Urine Cocaine Screen U Marijuana (THC) Screen Ethyl Alcohol SARS-CoV-2 (PCR) 05/03/22 05/03/22 05/03/22 15:12 15:40 15:40 WBC RBC Hgb Hct MCV MCH MCHC RDW Plt Count Neut % (Auto) Lymph % (Auto) [place] % (Auto) Eos % (Auto) Baso % (Auto) Lymph # (Auto) [place] # (Auto) Baso # (Auto) Total Counted Seg Neutrophils % Band Neutrophils % Lymphocytes % (Manual) Monocytes % (Manual) Neutrophils # (Manual) Differential Comment RBC Morphology Poikilocytosis PT INR Sodium Potassium Chloride Carbon Dioxide BUN Creatinine Estimated GFR BUN/Creatinine Ratio Glucose Lactate Calcium Magnesium Total Bilirubin AST ALT Alkaline Phosphatase Total Creatine Kinase CK-MB (CK-2) CK-MB (CK-2) Rel Index Troponin I Total Protein Albumin Globulin Albumin/Globulin Ratio Lipase Procalcitonin TSH 1.02 Urine Color Yellow Urine Appearance Sl cloudy Urine pH 6.0 Ur Specific [place] 1.015 Urine Protein Trace H Urine Glucose (UA) Negative Urine Ketones Negative Urine Occult Blood Trace-intact Urine Nitrate Negative Urine Bilirubin 1+ H Ur Bilirubin Confirm Negative Urine Urobilinogen 1.0 Ur Leukocyte Esterase Negative Urine RBC 1-5/hpf Urine WBC 1-5/hpf Ur Squamous Epith Cells 5-10 /hpf H Urine Bacteria None seen Hyaline Casts 10-30/lpf Granular Casts 1-5/lpf Ur Culture Indicated? Cult not indicated U Opiates 300ng/mL cut Negative Ur Oxycodone Screen Negative Urine Methadone Screen Negative Ur Barbiturates Screen Negative U Tricyclic Antidepress Negative Ur Phencyclidine Scrn Negative Ur Amphetamines Screen Negative U Methamphetamines Scrn Negative Ur MDMA Scrn (Ecstasy) Negative U Benzodiazepines Scrn Negative Urine Cocaine Screen Negative U Marijuana (THC) Screen Negative Ethyl Alcohol SARS-CoV-2 (PCR) 05/03/22 05/03/22 05/03/22 16:11 16:11 16:11 WBC RBC Hgb Hct MCV MCH MCHC RDW Plt Count Neut % (Auto) Lymph % (Auto) [place] % (Auto) Eos % (Auto) Baso % (Auto) Lymph # (Auto) [place] # (Auto) Baso # (Auto) Total Counted Seg Neutrophils % Band Neutrophils % Lymphocytes % (Manual) Monocytes % (Manual) Neutrophils # (Manual) Differential Comment RBC Morphology Poikilocytosis PT INR Sodium 151 H Potassium 3.7 Chloride 112 H Carbon Dioxide 24 BUN 85 H Creatinine 1.72 H Estimated GFR 32 L BUN/Creatinine Ratio 49.4 H Glucose 144 H Lactate Calcium 8.8 Magnesium 2.8 H Total Bilirubin 1.9 H AST 140 H ALT 150 H Alkaline Phosphatase 158 H Total Creatine Kinase 856 H CK-MB (CK-2) 8.33 H CK-MB (CK-2) Rel Index 1.0 L Troponin I 0.014 Total Protein 7.6 Albumin 3.6 Globulin 4.0 Albumin/Globulin Ratio 0.9 L Lipase 144 Procalcitonin TSH Urine Color Urine Appearance Urine pH Ur Specific [place] Urine Protein Urine Glucose (UA) Urine Ketones Urine Occult Blood Urine Nitrate Urine Bilirubin Ur Bilirubin Confirm Urine Urobilinogen Ur Leukocyte Esterase Urine RBC Urine WBC Ur Squamous Epith Cells Urine Bacteria Hyaline Casts Granular Casts Ur Culture Indicated? U Opiates 300ng/mL cut Ur Oxycodone Screen Urine Methadone Screen Ur Barbiturates Screen U Tricyclic Antidepress Ur Phencyclidine Scrn Ur Amphetamines Screen U Methamphetamines Scrn Ur MDMA Scrn (Ecstasy) U Benzodiazepines Scrn Urine Cocaine Screen U Marijuana (THC) Screen Ethyl Alcohol < 10 SARS-CoV-2 (PCR) 05/03/22 05/03/22 05/03/22 16:13 20:20 20:20 WBC RBC Hgb Hct MCV MCH MCHC RDW Plt Count Neut % (Auto) Lymph % (Auto) [place] % (Auto) Eos % (Auto) Baso % (Auto) Lymph # (Auto) [place] # (Auto) Baso # (Auto) Total Counted Seg Neutrophils % Band Neutrophils % Lymphocytes % (Manual) Monocytes % (Manual) Neutrophils # (Manual) Differential Comment RBC Morphology Poikilocytosis PT 16.4 H INR 1.4 H Sodium Potassium Chloride Carbon Dioxide BUN Creatinine Estimated GFR BUN/Creatinine Ratio Glucose Lactate 2.3 H Calcium Magnesium Total Bilirubin AST ALT Alkaline Phosphatase Total Creatine Kinase CK-MB (CK-2) CK-MB (CK-2) Rel Index Troponin I Total Protein Albumin Globulin Albumin/Globulin Ratio Lipase Procalcitonin TSH Urine Color Urine Appearance Urine pH Ur Specific [place] Urine Protein Urine Glucose (UA) Urine Ketones Urine Occult Blood Urine Nitrate Urine Bilirubin Ur Bilirubin Confirm Urine Urobilinogen Ur Leukocyte Esterase Urine RBC Urine WBC Ur Squamous Epith Cells Urine Bacteria Hyaline Casts Granular Casts Ur Culture Indicated? U Opiates 300ng/mL cut Ur Oxycodone Screen Urine Methadone Screen Ur Barbiturates Screen U Tricyclic Antidepress Ur Phencyclidine Scrn Ur Amphetamines Screen U Methamphetamines Scrn Ur MDMA Scrn (Ecstasy) U Benzodiazepines Scrn Urine Cocaine Screen U Marijuana (THC) Screen Ethyl Alcohol SARS-CoV-2 (PCR) Negative 05/03/22 05/03/22 05/03/22 20:20 20:20 20:20 WBC RBC Hgb Hct MCV MCH MCHC RDW Plt Count Neut % (Auto) Lymph % (Auto) [place] % (Auto) Eos % (Auto) Baso % (Auto) Lymph # (Auto) [place] # (Auto) Baso # (Auto) Total Counted Seg Neutrophils % Band Neutrophils % Lymphocytes % (Manual) Monocytes % (Manual) Neutrophils # (Manual) Differential Comment RBC Morphology Poikilocytosis PT INR Sodium 148 H Potassium 3.7 Chloride 116 H Carbon Dioxide 17 L BUN 76 H Creatinine 1.41 H Estimated GFR 40 L BUN/Creatinine Ratio 53.9 H Glucose 137 H Lactate Calcium 8.4 Magnesium 2.6 H Total Bilirubin AST ALT Alkaline Phosphatase Total Creatine Kinase CK-MB (CK-2) CK-MB (CK-2) Rel Index Troponin I 0.017 Total Protein Albumin Globulin Albumin/Globulin Ratio Lipase Procalcitonin TSH Urine Color Urine Appearance Urine pH Ur Specific [place] Urine Protein Urine Glucose (UA) Urine Ketones Urine Occult Blood Urine Nitrate Urine Bilirubin Ur Bilirubin Confirm Urine Urobilinogen Ur Leukocyte Esterase Urine RBC Urine WBC Ur Squamous Epith Cells Urine Bacteria Hyaline Casts Granular Casts Ur Culture Indicated? U Opiates 300ng/mL cut Ur Oxycodone Screen Urine Methadone Screen Ur Barbiturates Screen U Tricyclic Antidepress Ur Phencyclidine Scrn Ur Amphetamines Screen U Methamphetamines Scrn Ur MDMA Scrn (Ecstasy) U Benzodiazepines Scrn Urine Cocaine Screen U Marijuana (THC) Screen Ethyl Alcohol SARS-CoV-2 (PCR) PFSH Medical History Hypothyroidism Social History household members: none Smoking Status: Never smoker alcohol intake: former Assessment & Plan Assessment & Plan narrative: Karlos Boyd will be transferred to the ICU for further monitoring of atrial fibrillation w/RVR Atrial fibrillation w/RVR, acute, not initally present on admission * She was administered a one-time dose of IV diltiazem 10 mg and oral metoprolol IR 25 mg po, of which her blood pressure and rate have normalized * She is still in atrial fibrillation * Transferred to ICU and Dr. Ohara, tele-Piping Designer consulted Rhabo, acute and present on admission * Monitor CKs and daily chemistries Cellulitis, likely traumatic and present on admission * Consider General Surgery consult if not improved * daily dressing changes * Levafloxacin 750 mg IV q day Risk stratification * Lipid panel in the am Other independent historians: none Discussion of results, plan of care with independent HCP/other Dr. Ohara, tele-clinical operations manager Reviewed outside records: PCP [facility] clinic notes VTE Prophylaxis: Wells risk score 0 Heparin 5000 units twice daily Patient is admitted to the inpatient intensive service due to the severity of disease, risks of further disease progression and this stay is expected to exceed 2 midnights. FEN: IV fluids: LR at 125 m/hour, diet: general, labs: CBC, C/BMP, liver enzymes, Mag, PT/INR Consultants eICU, care and involvement in the patient?s care is appreciated. Anesthesia for placing a centra line, appreciate care. Social determinants of health: probable unsafe housing conditions Dispo: Probable rehab necessary Code status: full code as discussed with the patient who identifies her son Juan as her surrogate and POA. [X] I have utilized all available immediate resources to obtain, update, or review of the patient's current medications VTE Deep Vein Thrombosis/Pulmonary Embolism Present on Admission: No MIPS - Admit I confirm the patient?s Advance Care Plan is present, Code status is documented, Surrogate decision maker is in patient?s record: Yes MIPS - DC The patient has current or prior documentation of left ventricular ejection fraction (LVEF) less than 40%, or moderate or severely depressed left ventricular systolic function.: No COVID-19 COVID-19 status: Negative Result date/Date tested (Pos, Neg/Pending): 05/03/22 Time Spent With Patient Critical Care time: I spent a total of 90 minutes of critical care time on this patient's care today; this time is exclusive of procedural time. Quality VTE Deep Vein Thrombosis/Pulmonary Embolism Present on Admission: No
--- NOTE | 2022-05-03 22:19 | DI.RAD.S_ITS ---
PROCEDURE: XR CHEST 1V INDICATIONS: central line placement TECHNIQUE: One view of the chest was acquired. COMPARISON: [facility], , XR CHEST 1V, 05/03/2022, 15:42. FINDINGS: Surgical changes and devices: None visualized on the current study. Lungs and pleura: The lung apices are incompletely included on the current study. The visualized lungs demonstrate no definite pneumothorax. There is a possible small left pleural effusion. No new consolidation. Mediastinum: Mediastinal contours are unchanged. Heart size is enlarged. Bones and chest wall: No suspicious bony lesions. Overlying soft tissues appear unremarkable. IMPRESSION: 1. Limited study with incomplete inclusion of the lung apices. 2. No definite pneumothorax within the visualized lungs. 3. No discrete new catheter identified. Consider a repeat study when clinically feasible Dictated by: Georges Shin M.D. on 05/03/2022 at 23:15 Approved by: Georges Shin M.D. on 05/03/2022 at 23:17
--- NOTE | 2022-05-03 22:24 | PM.PROC.1 ---
Procedures Date/Time Date of procedure: 05/03/22 Time of procedure: 22:00 Central Line Placement Time out performed: Yes Patient placed on monitor/pulse ox: Yes MD prep: mask, gown and gloves Central line prep: Chlorhexidine scrub and sterile drapes applied Local anesthesia used: lidocaine 1% Amount of anesthesia used (ml): 5 Ultrasound used for placement: Yes Central line lumen inserted: triple Post procedure: sutured in place, good blood return, all ports aspirated, flushed, capped and sterile dressing applied Post procedure x-ray: tip of catheter in good position and no pneumothorax seen Patient tolerated procedure: well and no complications Complications: none
[2022-05-03] MEDS: HYDROMORPHONE 0.5 MG INJ IV (22:54)
[2022-05-03] MEDS: levoFLOXacin 750 MG/150 ML PIGGYBACK 100 MG IV (22:54)
[2022-05-03 22:56] LABS: Hematocrit 45.9 % (36-46); Hemoglobin 15.4 g/dL (12.0-16.0); Mean Corpuscular HGB Conc 33.5 % (30-36); Mean Corpuscular Hemoglobin 29.8 PG (26-34); Platelet Count 245 X10^3/uL (150-400); Red Blood Cell Count 5.15 X10^6/uL (4.0-5.2); Red Cell Distribution Width 13.6 % (11.6-14.8); White Blood Cell Count 27.6 X10^3/uL (4.5-11.0)
[2022-05-03 23:04] LABS: Add Manual Diff / Slide Review YES
[2022-05-03] MEDS: HEPARIN 5,000 UNIT/ML VIAL 5000 UNIT SUBCUT (23:15)
[2022-05-03 23:20] LABS: Neutrophils Absolute Manual 24288 /uL (3000-5900); Total Cells Counted 100
[2022-05-03 23:21] LABS: Poikilocytosis 1+
[2022-05-03 23:24] LABS: Free T4, Direct Thyroxine 1.33 ng/dL (0.78-2.19)
[2022-05-03 23:38] LABS: Thyroid Stimulating Hormone 1.24 uIU/mL (0.47-4.68)
--- NOTE | 2022-05-03 23:41 | PC.NURSE ---
Procedure note: [address] Dr. Chacon. Patient tolerated well. Chest x-ray obtained. Line okay to use.
[2022-05-04] VITALS (27 sets, daily range): BP systolic 110–135; BP diastolic 55–86; PULSE 77–157; RESP 14–48; TEMP 35.5–36.5; O2SAT 96–100
[2022-05-04] MEDS: HYDROMORPHONE 0.5 MG INJ IV ×3 (02:08→15:16)
--- NOTE | 2022-05-04 03:51 | PC.NURSE ---
Groin and perineum nonstagable
--- NOTE | 2022-05-04 03:53 | PC.NURSE ---
Left leg nonstagable abrasion
--- NOTE | 2022-05-04 03:55 | PC.NURSE ---
Weeping nonstagable abrasion on left thigh
--- NOTE | 2022-05-04 03:56 | PC.NURSE ---
nonstagable abrasion and blisters to left foot
--- NOTE | 2022-05-04 03:56 | PC.NURSE ---
Nonstagable abrasion and blisters on left knee
--- NOTE | 2022-05-04 03:58 | PC.NURSE ---
nonstagable abrasion left calf
--- NOTE | 2022-05-04 03:59 | PC.NURSE ---
Scattered scratches over abdomen
--- NOTE | 2022-05-04 04:00 | PC.NURSE ---
Skin tear covered by Radha
--- NOTE | 2022-05-04 04:00 | PC.NURSE ---
Skin tear on right nipple
[2022-05-04 05:22] LABS: Troponin I 0.016 ng/mL (0.01-0.034)
[2022-05-04 06:41] LABS: HCO3 ABG 25 mmol/L (23-27); PCO2 ABG 38.5 mmHg (35-45); PO2 ABG 22 mmHg (80-100); TCO2 ABG 39 mmol/L (23-27)
[2022-05-04 06:42] LABS: Fractionated Inspired Oxygen 21; Oxygen Saturation ABG 37 % (95-100)
[2022-05-04] MEDS: LACTATED RINGERS 1,000 ML 125 ML IV (07:37)
[2022-05-04] MEDS: METOPROLOL ER 50 MG TABLET PO (08:48)
--- NOTE | 2022-05-04 09:02 | PM.CALLCOV.1 ---
Call Coverage Note Note Narrative of Care Provided: I saw a consult order for this patient for Orthopedic show up in the computer this morning when I arrived at the hospital. It was placed overnight by another provider, I was not called. And the patient was not discussed with me. I spoke in person with hospitalist Dr. Rafa Mac as to whether a orthopedic consult was required for this patient. And asked for the clinical question. He stated there was no current orthopedic concern to necessitate a orthopedic consult. Discussed consult was not needed and would be canceled.
[2022-05-04] MEDS: HEPARIN 5,000 UNIT/ML VIAL 5000 UNIT SUBCUT ×2 (09:03→21:05)
--- NOTE | 2022-05-04 09:47 | DI.ECHO.S_ITS ---
Interpretation Summary 1) Mildly increased left ventricular thickness (concentric) with normal size and mildly systolic function (EF 45-50%). 2) Normal right ventricular size and function. 3) The left atrium is moderately dilated. 4) No significant valvular abnormalities. 5) Compared to the Echo done 05/17/2011, LVEF has decreased from normal to mildly reduced on this study. Procedure: A two-dimensional transthoracic echocardiogram with color flow and Doppler was performed. The study quality was technically adequate. There is no prior echocardiogram noted for this patient. The patient was in atrial fibrillation with heart rates between 80-115 bpm during the exam. Left Ventricle: There is mild concentric left ventricular hypertrophy. The left ventricular cavity is small. The ejection fraction is estimated to be 45- 50%. There is mild global hypokinesis of the left ventricle. Diastolic function could not be accurately assessed due to atrial fibrillation. Right Ventricle: The right ventricle is normal in size and function. Atria: The left atrium is moderately dilated. The right atrium is mildly dilated. There is no Doppler evidence for an interatrial shunt. Mitral Valve: The mitral valve is normal in structure and function. There is trace mitral regurgitation. Aortic Valve: The aortic valve is trileaflet. The aortic valve is slightly calcified. The aortic valve opens well. There is no aortic valve stenosis. There is trace aortic regurgitation. Tricuspid Valve: The tricuspid valve is normal in structure and function. There is mild tricuspid regurgitation. The right ventricular systolic pressure is estimated to be at least 27 mmHg based on an estimated right atrial pressure of 8 mm Hg. Pulmonic Valve: The pulmonic valve is not well seen, but is grossly normal. There is no pulmonic valvular regurgitation. Great Vessels: The aortic root is normal size. The dimensions of the ascending aorta are normal. The IVC is dilated (diameter is greater than 2.1 cm) yet it collapses greater than 50% with a sniff. This suggests a right atrial pressure of 8 mm Hg. Pericardium/ Pleura There is no pericardial effusion. There is no pleural effusion. MMode/2D Measurements & Calculations LVIDd: 3.6 cm LVOT diam: 2.0 cm LVIDs: 2.7 cm Ao root diam: 3.3 cm FS: 26.0 % asc Aorta Diam: 3.5 cm IVSd: 1.2 cm Ao Arch Diam (Prox Trans): 3.2 cm LVPWd: 1.2 cm LV aceves. diameter/BSA (cm/m^2): 1.4 LV sys. diameter/BSA (cm/m^2): 1.1 LA A2 area: 28.4 cm2 RA long axis: 6.9 cm LA A4 area: 32.5 cm2 RA area: 27.6 cm2 LA length (vol): 7.9 cm RA vol: 93.7 ml LA vol: 99.3 ml RA : 36.9 ml/m2 LA vol index: 39.1 ml/m2 IVC diam: 2.2 cm RVD1 (basal): 3.6 cm RVD2 (mid): 2.5 cm TAPSE: 1.8 cm Doppler Measurements & Calculations Ao V2 max: 159.0 cm/sec LVOT Max Mikhail: 102.6 cm/sec Ao V2 mean: 109.1 cm/sec LV V1 max P.2 mmHg Ao max P.2 mmHg LV V1 VTI: 15.6 cm Ao mean P.4 mmHg HANNA(I,D): 1.8 cm2 Ao V2 VTI: 28.2 cm HANNA(V,D): 2.0 cm2 sev ratio: 0.55 HANNA indexed to BSA (cm^2/m^2): 0.69 MV E max mikhail: 67.0 cm/sec TR max mikhail: 220.0 cm/sec MV A max mikhail: 1.8 cm/sec TR max P.4 mmHg MV E/A: 38.2 PA V2 max: 93.6 cm/sec Med Peak E' Mikhail: 10.4 cm/sec PA V2 mean: 66.3 cm/sec E/E' med: 6.5 PA mean P.0 mmHg Lat Peak E' Mikhail: 10.4 cm/sec PA pr(Accel): 48.2 mmHg E/E' lat: 6.4 E/e' average: 6.4 MV dec time: 0.22 sec SV(LVOT): 49.4 ml Reading Physician:12:59 PM
[2022-05-04 10:24] LABS: Alanine Aminotransferase 98 IU/L (<35); Albumin 2.6 g/dL (3.5-5.0); Albumin Globulin Ratio 0.8 (1.0-2.8); Alkaline Phosphatase 101 U/L (38-126); Aspartate Aminotransferase 69 IU/L (14-36); BUN Creatinine Ratio 56.5 (6-22); Bilirubin Total 1.5 mg/dL (0.2-1.3); Blood Urea Nitrogen 52 mg/dL (7-17); Calcium 7.9 mg/dL (8.4-10.2); Carbon Dioxide 26 mmol/L (22-32); Chloride 109 mmol/L (98-107); Estimated Glomerular Filt Rate > 60 mL/min (>60); Globulin 3.1 g/dL (1.7-4.1); Glucose 120 mg/dL (80-110); HEMOLYSIS < 15 (0-50); Potassium 3.2 mmol/L (3.4-5.1); Sodium 142 mmol/L (137-145); Total Protein 5.7 g/dL (6.3-8.2)
[2022-05-04 10:32] LABS: Add Manual Diff / Slide Review NO; Basophils Absolute Auto 0 /uL (0-100); Basophils Percent Auto 0.2 % (0-2); Eosinophils Absolute Auto 200 /uL (0-450); Eosinophils Percent Auto 1.1 % (2-4); Hematocrit 44.5 % (36-46); Lymphocytes Absolute Auto 1200 /uL (1100-4500); Mean Corpuscular HGB Conc 33.8 % (30-36); Mean Corpuscular Volume 88.8 fL (80-100); Monocytes Absolute Auto 800 /uL (0-900); Monocytes Percent Auto 3.9 % (3-14); Neutrophils Absolute Auto 18000 /uL (1500-7000); Neutrophils Percent Auto 88.8 % (50-75); Platelet Count 216 X10^3/uL (150-400); Red Blood Cell Count 5.01 X10^6/uL (4.0-5.2); Red Cell Distribution Width 13.7 % (11.6-14.8); White Blood Cell Count 20.2 X10^3/uL (4.5-11.0)
[2022-05-04 10:35] LABS: Troponin I < 0.012 ng/mL (0.01-0.034)
--- NOTE | 2022-05-04 10:47 | PT.IIE ---
Addendum entered and electronically signed by Kelsey Woods PT 05/04/22 16:31: Talked to hospitalist Esau prior to PT eval. inquired regarding bedrest order changed from ambulate as tolerated by evening hospitalist. stated that if pt is on diltiazem drip, pt will be on bed rest but if not, ok to see PT. checked with nurse and stated that pt does not have order fro diltiazem and will change bed rest order. nurse was an unable to change order but got clearance from MD. nurse changed bed rest order as requested after eval. Original Note: Current Diagnoses Unspecified atrial fibrillation (05/03/22) Medical History (Last Reviewed 05/03/22 @ 23:45 by GEOVANY Dillard) Hypothyroidism Physical Therapy Inpatient Evaluation/Re-Eval M1 PT/OT-IP Prior Functional Status Start: 05/04/22 13:19 Freq: NEEDED Status: Active Protocol: Document 05/04/22 10:47 AB (Rec: 05/04/22 13:32 AB [id number]) Medical Review Prior Functional Status Medical History Reviewed Yes Communication able to make needs known Mobility and Gait pt stated that she is independent with all mobilities and ambulation usign SPC Social History Household Members none Living Arrangements House Number of Floors (Floors) One Floor Number of Stairs To Enter/Railing? ramp to enter Home Environment High Toilet,Walk in Shower, Built-In Shower Seat,Ramp Home Equipment Straight Cane,Grab Bars In Shower Additional Social History Comment pt has an adjustable bed M2 PT-IP Current Condition Start: 05/04/22 13:19 Freq: NEEDED Status: Active Protocol: Document 05/04/22 10:47 AB (Rec: 05/04/22 13:32 AB [email or web address]) Physical Therapy Current Condition Current Condition Evaluation Date 05/04/22 Treatment Diagnosis s/p fall; dehydration; difficulty in walking Onset Date 05/03/22 M3 PT-IP Subjective Start: 05/04/22 13:19 Freq: NEEDED Status: Active Protocol: Document 05/04/22 10:47 AB (Rec: 05/04/22 13:32 AB [email or web address]) Subjective Physical Therapy Visit Type Type Treatment Note Visit Start Time 10:47 Visit Stop Time 11:43 Total Visit Minutes 56 Number of BRANCH RETAIL EXECUTIVE Visits 0 Physical Therapy Visit Comments Patient Comments agreeable to do PT Therapy Pain Assessment Pain When Pain Assessed During Mobility Location Generalized Scale Used pain scale not stated Pain Management Techniques Distraction,Modification of Treatment,Timing of Activity with Medications M4 PT-IP Mobility and Gait Start: 05/04/22 13:19 Freq: NEEDED Status: Active Protocol: Document 05/04/22 10:47 AB (Rec: 05/04/22 13:32 AB [email or web address]) PT-Bed Mobility Assessment Supine to Sit Supine to Sit Maximum Assistance,2 Person Assistance,Head of Bed Elevated,Bedrails Sit to Supine Sit to Supine Maximum Assistance,Total Assistance,2 Person Assistance ,Bedrails Scooting Scooting Up and Down in Bed Maximum Assistance PT-Transfer Assessment Sit to and From Stand Sit to and from Stand Maximum Assistance,2 Person Assistance,Use of Upper Extremities Equipment Transfer Assistive Device Gait Belt,Front Wheeled Walker Orthotic/Prosthetic Devices or Brace: No Comments Mobility Comments pt s/p fall and has anterior trunk/LE wounds. pt agreeable to do PT. completed supine to sit max A x 2 and max cues with HOB elevated and use of bed rail. able to sit on EOB max A with increase posterior trunk lean and cues to correct . positioned pt on EOB total A x 2 and after positioning was able to sit on EOB min A. completed sit to stand x 2 attempts max A x 2 and max cues. attempted to step transfer to chair and pt only able to take ~ 2-3 steps using FWW max a x 2 and max cues. requires assist with weight shifting and for LE movement. pt c/o increase pain on B feet and stated that she feels faint. pt sat back on EOB. assisted back to bed max a x 2 to total A x 2 and max cues. positioned pt in bed max Ax 2 and max cues. call light and table placed within reach. PT-Balance Assessment Sitting Balance and Reactions Static Sitting Balance Ability Fair Dynamic Sitting Balance Ability Poor Standing Balance and Reactions Static Standing Balance Ability Poor Dynamic Standing Balance Ability Poor Device Used FWW M5 PT-IP Objective Assessments Start: 05/04/22 13:19 Freq: NEEDED Status: Active Protocol: Document 05/04/22 10:47 AB (Rec: 05/04/22 13:32 AB [email or web address]) Orientation Orientation/Cognition Level of Alertness Alert Orientation Name,Place,Situation Language Function Ability No Deficits Noted Safety Awareness Decreased Safety Awareness Memory Description No Deficits Noted Gross Range of Motion Lower Extremity ROM Impairments increase LE guarding with PROM due to wounds Strength Lower Extremity Strength Assessment Bilaterally Impaired Hip 3+/5 Knee 3+/5 Muscle Tone Muscle Tone WNL Yes M6 PT-IP Treatment Start: 05/04/22 13:19 Freq: NEEDED Status: Active Protocol: Document 05/04/22 10:47 AB (Rec: 05/04/22 13:32 AB [email or web address]) Physical Therapy Treatment Education Education Provided Safety M7 PT-IP Assessment and Plan Start: 05/04/22 13:19 Freq: NEEDED Status: Active Protocol: Document 05/04/22 10:47 AB (Rec: 05/04/22 13:32 AB [email or web address]) PT Summary Assessment and Plan Potential Rehabilitation Potential Fair Status of Condition at Evaluation Evolving Summary Impairments Pain,ROM,Strength,Balance, Coordination,Sensation,Tone, Cognition,Bed Mobility, Transfers,Gait,Activity Tolerance Assessment Summary pt requiring max A x 2 to total Ax 2 with mobility and unable to tolerate much activity due to pain and decrease activity tolerance. pt will require SNF rehab to improve strength and function. Goals Bed Mobility Goal Minimal Assistance Transfer Goal Minimal Assistance,Front Wheeled Walker Gait Goal Minimal Assistance,Front Wheel Walker Gait Distance 25 Other Goals improve bed mobility, transfers and ambulation using FWW SBA 150 ft Days to Meet Goals 10 Frequency of Treatment Frequency Of Treatment Once a Day Treatment Plan Physical Therapy Treatment Plan Bed Mobility Training,Transfer Training,Gait Training, Therapeutic Exercise,Balance Retraining,Discharge Planning, Hot or Cold Pack,Neuromuscular Re-ed,Coordination Retraining Precautions Other Precautions falls Recommendations To Nursing Amount of Assist Needed Mechanical Lift Discharge Recommendations PT Discharge Recommendations SNF Rehab Transportation Needs at Discharge Wheelchair/Cabulance,Stretcher /Ambulance
--- NOTE | 2022-05-04 12:20 | CM.DANOTE ---
Addendum entered by Palmira Reyes R.N. 05/04/22 15:34: Karina at [facility] feels that they can accept patient on Friday. This was patient's first choice. Karina has no concerns about getting her a saturnino bed. Completed PASSR. Addendum entered by Palmira Reyes R.N. 05/04/22 15:28: Met with patient, brought in ipad with Medicare Choice List. First choice is [facility], then, [facility], and [facility]. [facility] has referral already, faxed over to [facility], spoke to Karina in admissions today, she will review, and spoke to Eva at [facility], they have had COVID cases, patient is not vaccinated, would have to isolate her. Will go ahead and complete PASSR. Addendum entered by Palmira Reyes R.N. 05/04/22 14:27: Spoke to T[place]anna physical therapist, stated, person was max assist of two. Patient may need nursing home. Attempted to meet with patient again and bring in ipad, but currently sleeping. Will have to revisit facilities with patient. Patient may need bariatric bed, as could also be another barrier. Did call Barbara at [facility] to see if weight was a barrier, stated, should not be, can review. Will still plan on meeting patient with choice list, but if sleeping, will not be able to do so today. Original Note: DCP: Case received, EMR reviewed and met with patient. Introduced self and role. Was able to obtain information regarding patient's baseline activity level at home prior to hospitalization, as well as her current living situation. DCP assessment completed with information currently available. Patient is a 71 year old female who admitted yesterday evening to the care of the hospitalist team. PCP: (in [facility]) Payer: confirmed: Medicare/[employer]. Patient came to the hospital via ambulance secondary to a ground level fall that occurred at her home. Notes indicate that patient had been on the floor for about 5 days. Her therapist had been concerned when she did not show up for her routine appointment, and had called police. They arrived at her home, and found her on the floor. Patient had been in the bathroom using the toilet, legs became weak, and fell near the toilet unable to get up. Notes also indicate that patient had been urinating and defecating on herself, and had skin breakdown over her anterior thighs. Patient was diagnosed with Afib with RVR, Hypernatremia, DESMOND, lactic acidemia. Met with patient in her room. She was sitting up in bed. She is alert and oriented. Confirmed that she resides in [place] alone, her son lives on the property nearby. He is currently in [place], however. At her baseline, she does not drive, he drives her to appointments and does her shopping. Confirmed that she is a , her spouse in 2019. She stated, she found out that he was a pedifile after 35 years of marriage, and he suddenly. Patient has been going to counseling since, on an outpatient basis. Patient does use a cane at baseline. She stated, her experience was pretty scary, her legs just gave out, and she was wedged between the toilet and counter. She had been on the floor for several days. She stated that the police had contacted her son with permission to enter her home. Patient just worked with P.T. Confirmed with patient that Dr. Weber is primary care provider in [facility], but wants a new provider. She also used to see Dr. Allen prior. Let her know that this [employer] Planner can give resources for providers in this area if needed. P: DCP to continue to follow closely, and will see how she does with P.T. This is questionable if patient will need nursing home versus home health. Palmira Reyes RN/River Expedition Guide Discharge Planning/Care Management CM Discharge Assessment Start: 05/04/22 12:18 Freq: Status: Active Protocol: Document 05/04/22 12:18 (Rec: 05/04/22 12:20 [email or web address]) Discharge Planning Assessment Assigned Traffic Survey Technician Palmira Reyes RN/River Expedition Guide Advance Directives? No History Provided By Patient,Medical Record Prior Living Arrangements House Household Members none Type of transporation used prior to Relies on Others admit Comment Patient indicated that her son drives her to appointments. Independent with ADL's Yes Is patient alert and oriented? Yes Needs Assistance With Home Chores / Shopping Comment Patient indicated that her son assists with shopping Caregiver for Another No DME Already Rented / Owned Cane Comment Will have to see how she does with P.T. Patient lives alone, son is currently out of the country Discharge Plan Home Transportation Arrangement Family, Friend? Referrals Initiated Other Additional Comment Will see how patient does with P.T. Whiteboard Updated in Patient Room with Yes name and ext. # of Traffic Survey Technician Review Status In Process Next Review Type Continued Stay Review
[2022-05-04] MEDS: POTASSIUM CHLORIDE 20 MEQ TAB 40 MEQ PO ×2 (13:21→17:55)
--- NOTE | 2022-05-04 15:48 | PM.PN.1 ---
Subjective Subjective Date Patient Seen: 05/04/22 Interval history: overnight patient transferred to the ICU on dilt infusion for rate control. There was concern by nursing staff for compartment syndrome, however exam and skin findings not consistent with compartment syndrome with soft compartments and good distal pulses. She does have lower extremity cellulitis and remains on levaquin and vancomycin, though vancomycin discontinued given negative MRSA swab today. Exam Vital Signs (past 8 hours): - 05/04/22 08:48 05/04/22 09:00 05/04/22 08:22 Temperature 95.9 F L Pulse Rate 125 H 100 H Respiratory Rate 28 H Blood Pressure 122/86 Pulse Oximetry 99 Oxygen Flow Rate 05/04/22 08:30 05/04/22 09:00 05/04/22 09:07 Temperature Pulse Rate 92 H 130 H 139 H Respiratory Rate 23 23 20 Blood Pressure Pulse Oximetry 99 98 100 Oxygen Flow Rate 05/04/22 09:07 05/04/22 09:08 05/04/22 09:08 Temperature Pulse Rate 132 H Respiratory Rate 26 H Blood Pressure 135/84 135/77 Pulse Oximetry 99 Oxygen Flow Rate 05/04/22 09:30 05/04/22 09:18 05/04/22 10:00 Temperature Pulse Rate 106 H 92 H 106 H Respiratory Rate 18 37 H Blood Pressure 119/76 Pulse Oximetry 99 99 Oxygen Flow Rate 05/04/22 10:01 05/04/22 10:01 05/04/22 10:30 Temperature Pulse Rate 92 H 88 Respiratory Rate 14 26 H Blood Pressure 119/76 Pulse Oximetry 100 99 Oxygen Flow Rate 05/04/22 11:00 05/04/22 11:00 05/04/22 11:30 Temperature Pulse Rate 87 157 H Respiratory Rate 22 48 H Blood Pressure 122/74 Pulse Oximetry 99 Oxygen Flow Rate 05/04/22 12:00 05/04/22 12:00 05/04/22 12:30 Temperature Pulse Rate 98 H 100 H Respiratory Rate 23 23 Blood Pressure 135/81 Pulse Oximetry Oxygen Flow Rate 05/04/22 13:00 05/04/22 13:30 05/04/22 15:23 Temperature 97.7 F Pulse Rate 118 H 102 H 92 H Respiratory Rate 22 25 H 18 Blood Pressure 119/84 Pulse Oximetry 100 Oxygen Flow Rate 0 Oxygen Delivery Method Room Air Oxygen Flow Rate 0 Narrative Exam Narrative: Gen: Alert, oriented, morbidly obese 71 y.o. female, in a great deal of pain when moved HEENT: normocephalic, atraumatic, conjunctiva clear, sclera non-icteric, oral mucosa pink and moist Neck: supple, full ROM, no JVD, trachea is midline Resp: Lungs CTA, non-labored breathing CV: Tachy and irregular, no murmur or rubs Abd: soft, non-tender, normoactive BTs Skin: multiple large areas of excoriations in her lower abdomen, inner thighs extending to her knees, fairly superficial without necrosis. erythema is present. Lower left leg also has cellulitis with erythema, warmth and tenderness, swelling of middle toes. DP +2 bilaterally. L > R bilateral lower extremity edema. Neuro: Alert and oriented X 4 w/no focal deficits. Speech clear and coherent. Extremities: moves all 4 extremities, is ambulatory, negative Hermelinda?s sign Psyche: normal mood and affect. Objective Labs 05/04/22 09:58 05/04/22 09:58 Labs: Laboratory Results - last 24 hr 05/03/22 05/03/22 05/03/22 15:12 15:12 15:12 WBC RBC Hgb Hct MCV MCH MCHC RDW Plt Count Neut % (Auto) Lymph % (Auto) Boyd % (Auto) Eos % (Auto) Baso % (Auto) Neut # (Auto) Lymph # (Auto) Boyd # (Auto) Eos # (Auto) Baso # (Auto) Total Counted 100 Seg Neutrophils % 82.0 H Band Neutrophils % 5.0 Lymphocytes % (Manual) 6.0 L Monocytes % (Manual) 7.0 Eosinophils % (Manual) Neutrophils # (Manual) 47980 H Differential Comment 2 RBC Morphology See Poikilocytosis 1+ H PT INR ABG pH ABG pCO2 ABG pO2 ABG HCO3 ABG Total CO2 ABG O2 Saturation ABG Base Excess FiO2 Sodium Potassium Chloride Carbon Dioxide BUN Creatinine Estimated GFR BUN/Creatinine Ratio Glucose Lactate 3.4 H Calcium Magnesium Total Bilirubin AST ALT Alkaline Phosphatase Total Creatine Kinase CK-MB (CK-2) CK-MB (CK-2) Rel Index Troponin I Total Protein Albumin Globulin Albumin/Globulin Ratio Lipase Procalcitonin 1.26 H TSH Free T4 Urine Color Urine Appearance Urine pH Ur Specific [place] Urine Protein Urine Glucose (UA) Urine Ketones Urine Occult Blood Urine Nitrate Urine Bilirubin Ur Bilirubin Confirm Urine Urobilinogen Ur Leukocyte Esterase Urine RBC Urine WBC Ur Squamous Epith Cells Urine Bacteria Hyaline Casts Granular Casts Ur Culture Indicated? Nasal Screen MRSA (PCR) U Opiates 300ng/mL cut Ur Oxycodone Screen Urine Methadone Screen Ur Barbiturates Screen U Tricyclic Antidepress Ur Phencyclidine Scrn Ur Amphetamines Screen U Methamphetamines Scrn Ur MDMA Scrn (Ecstasy) U Benzodiazepines Scrn Urine Cocaine Screen U Marijuana (THC) Screen Ethyl Alcohol SARS-CoV-2 (PCR) 05/03/22 05/03/22 05/03/22 15:12 15:40 15:40 WBC RBC Hgb Hct MCV MCH MCHC RDW Plt Count Neut % (Auto) Lymph % (Auto) Boyd % (Auto) Eos % (Auto) Baso % (Auto) Neut # (Auto) Lymph # (Auto) Boyd # (Auto) Eos # (Auto) Baso # (Auto) Total Counted Seg Neutrophils % Band Neutrophils % Lymphocytes % (Manual) Monocytes % (Manual) Eosinophils % (Manual) Neutrophils # (Manual) Differential Comment RBC Morphology Poikilocytosis PT INR ABG pH ABG pCO2 ABG pO2 ABG HCO3 ABG Total CO2 ABG O2 Saturation ABG Base Excess FiO2 Sodium Potassium Chloride Carbon Dioxide BUN Creatinine Estimated GFR BUN/Creatinine Ratio Glucose Lactate Calcium Magnesium Total Bilirubin AST ALT Alkaline Phosphatase Total Creatine Kinase CK-MB (CK-2) CK-MB (CK-2) Rel Index Troponin I Total Protein Albumin Globulin Albumin/Globulin Ratio Lipase Procalcitonin TSH 1.02 Free T4 Urine Color Yellow Urine Appearance Sl cloudy Urine pH 6.0 Ur Specific [place] 1.015 Urine Protein Trace H Urine Glucose (UA) Negative Urine Ketones Negative Urine Occult Blood Trace-intact Urine Nitrate Negative Urine Bilirubin 1+ H Ur Bilirubin Confirm Negative Urine Urobilinogen 1.0 Ur Leukocyte Esterase Negative Urine RBC 1-5/hpf Urine WBC 1-5/hpf Ur Squamous Epith Cells 5-10 /hpf H Urine Bacteria None seen Hyaline Casts 10-30/lpf Granular Casts 1-5/lpf Ur Culture Indicated? Cult not indicated Nasal Screen MRSA (PCR) U Opiates 300ng/mL cut Negative Ur Oxycodone Screen Negative Urine Methadone Screen Negative Ur Barbiturates Screen Negative U Tricyclic Antidepress Negative Ur Phencyclidine Scrn Negative Ur Amphetamines Screen Negative U Methamphetamines Scrn Negative Ur MDMA Scrn (Ecstasy) Negative U Benzodiazepines Scrn Negative Urine Cocaine Screen Negative U Marijuana (THC) Screen Negative Ethyl Alcohol SARS-CoV-2 (PCR) 05/03/22 05/03/22 05/03/22 16:11 16:11 16:11 WBC RBC Hgb Hct MCV MCH MCHC RDW Plt Count Neut % (Auto) Lymph % (Auto) Boyd % (Auto) Eos % (Auto) Baso % (Auto) Neut # (Auto) Lymph # (Auto) Boyd # (Auto) Eos # (Auto) Baso # (Auto) Total Counted Seg Neutrophils % Band Neutrophils % Lymphocytes % (Manual) Monocytes % (Manual) Eosinophils % (Manual) Neutrophils # (Manual) Differential Comment RBC Morphology Poikilocytosis PT INR ABG pH ABG pCO2 ABG pO2 ABG HCO3 ABG Total CO2 ABG O2 Saturation ABG Base Excess FiO2 Sodium 151 H Potassium 3.7 Chloride 112 H Carbon Dioxide 24 BUN 85 H Creatinine 1.72 H Estimated GFR 32 L BUN/Creatinine Ratio 49.4 H Glucose 144 H Lactate Calcium 8.8 Magnesium 2.8 H Total Bilirubin 1.9 H AST 140 H ALT 150 H Alkaline Phosphatase 158 H Total Creatine Kinase 856 H CK-MB (CK-2) 8.33 H CK-MB (CK-2) Rel Index 1.0 L Troponin I 0.014 Total Protein 7.6 Albumin 3.6 Globulin 4.0 Albumin/Globulin Ratio 0.9 L Lipase 144 Procalcitonin TSH Free T4 Urine Color Urine Appearance Urine pH Ur Specific [place] Urine Protein Urine Glucose (UA) Urine Ketones Urine Occult Blood Urine Nitrate Urine Bilirubin Ur Bilirubin Confirm Urine Urobilinogen Ur Leukocyte Esterase Urine RBC Urine WBC Ur Squamous Epith Cells Urine Bacteria Hyaline Casts Granular Casts Ur Culture Indicated? Nasal Screen MRSA (PCR) U Opiates 300ng/mL cut Ur Oxycodone Screen Urine Methadone Screen Ur Barbiturates Screen U Tricyclic Antidepress Ur Phencyclidine Scrn Ur Amphetamines Screen U Methamphetamines Scrn Ur MDMA Scrn (Ecstasy) U Benzodiazepines Scrn Urine Cocaine Screen U Marijuana (THC) Screen Ethyl Alcohol < 10 SARS-CoV-2 (PCR) 05/03/22 05/03/22 05/03/22 16:13 20:20 20:20 WBC RBC Hgb Hct MCV MCH MCHC RDW Plt Count Neut % (Auto) Lymph % (Auto) Boyd % (Auto) Eos % (Auto) Baso % (Auto) Neut # (Auto) Lymph # (Auto) Boyd # (Auto) Eos # (Auto) Baso # (Auto) Total Counted Seg Neutrophils % Band Neutrophils % Lymphocytes % (Manual) Monocytes % (Manual) Eosinophils % (Manual) Neutrophils # (Manual) Differential Comment RBC Morphology Poikilocytosis PT 16.4 H INR 1.4 H ABG pH ABG pCO2 ABG pO2 ABG HCO3 ABG Total CO2 ABG O2 Saturation ABG Base Excess FiO2 Sodium Potassium Chloride Carbon Dioxide BUN Creatinine Estimated GFR BUN/Creatinine Ratio Glucose Lactate 2.3 H Calcium Magnesium Total Bilirubin AST ALT Alkaline Phosphatase Total Creatine Kinase CK-MB (CK-2) CK-MB (CK-2) Rel Index Troponin I Total Protein Albumin Globulin Albumin/Globulin Ratio Lipase Procalcitonin TSH Free T4 Urine Color Urine Appearance Urine pH Ur Specific [place] Urine Protein Urine Glucose (UA) Urine Ketones Urine Occult Blood Urine Nitrate Urine Bilirubin Ur Bilirubin Confirm Urine Urobilinogen Ur Leukocyte Esterase Urine RBC Urine WBC Ur Squamous Epith Cells Urine Bacteria Hyaline Casts Granular Casts Ur Culture Indicated? Nasal Screen MRSA (PCR) U Opiates 300ng/mL cut Ur Oxycodone Screen Urine Methadone Screen Ur Barbiturates Screen U Tricyclic Antidepress Ur Phencyclidine Scrn Ur Amphetamines Screen U Methamphetamines Scrn Ur MDMA Scrn (Ecstasy) U Benzodiazepines Scrn Urine Cocaine Screen U Marijuana (THC) Screen Ethyl Alcohol SARS-CoV-2 (PCR) Negative 05/03/22 05/03/22 05/03/22 20:20 20:20 20:20 WBC RBC Hgb Hct MCV MCH MCHC RDW Plt Count Neut % (Auto) Lymph % (Auto) Boyd % (Auto) Eos % (Auto) Baso % (Auto) Neut # (Auto) Lymph # (Auto) Boyd # (Auto) Eos # (Auto) Baso # (Auto) Total Counted Seg Neutrophils % Band Neutrophils % Lymphocytes % (Manual) Monocytes % (Manual) Eosinophils % (Manual) Neutrophils # (Manual) Differential Comment RBC Morphology Poikilocytosis PT INR ABG pH ABG pCO2 ABG pO2 ABG HCO3 ABG Total CO2 ABG O2 Saturation ABG Base Excess FiO2 Sodium 148 H Potassium 3.7 Chloride 116 H Carbon Dioxide 17 L BUN 76 H Creatinine 1.41 H Estimated GFR 40 L BUN/Creatinine Ratio 53.9 H Glucose 137 H Lactate Calcium 8.4 Magnesium 2.6 H Total Bilirubin AST ALT Alkaline Phosphatase Total Creatine Kinase CK-MB (CK-2) CK-MB (CK-2) Rel Index Troponin I 0.017 Total Protein Albumin Globulin Albumin/Globulin Ratio Lipase Procalcitonin TSH Free T4 Urine Color Urine Appearance Urine pH Ur Specific [place] Urine Protein Urine Glucose (UA) Urine Ketones Urine Occult Blood Urine Nitrate Urine Bilirubin Ur Bilirubin Confirm Urine Urobilinogen Ur Leukocyte Esterase Urine RBC Urine WBC Ur Squamous Epith Cells Urine Bacteria Hyaline Casts Granular Casts Ur Culture Indicated? Nasal Screen MRSA (PCR) U Opiates 300ng/mL cut Ur Oxycodone Screen Urine Methadone Screen Ur Barbiturates Screen U Tricyclic Antidepress Ur Phencyclidine Scrn Ur Amphetamines Screen U Methamphetamines Scrn Ur MDMA Scrn (Ecstasy) U Benzodiazepines Scrn Urine Cocaine Screen U Marijuana (THC) Screen Ethyl Alcohol SARS-CoV-2 (PCR) 05/03/22 05/03/22 05/04/22 22:30 22:30 04:45 WBC 27.6 H RBC 5.15 Hgb 15.4 Hct 45.9 MCV 89.0 MCH 29.8 MCHC 33.5 RDW 13.6 Plt Count 245 Neut % (Auto) Not Reportable Lymph % (Auto) Not Reportable Boyd % (Auto) Not Reportable Eos % (Auto) Not Reportable Baso % (Auto) Not Reportable Neut # (Auto) Lymph # (Auto) Not Reportable Boyd # (Auto) Not Reportable Eos # (Auto) Baso # (Auto) Not Reportable Total Counted 100 Seg Neutrophils % 82.0 H Band Neutrophils % 6.0 Lymphocytes % (Manual) 6.0 L Monocytes % (Manual) 5.0 Eosinophils % (Manual) 1.0 L Neutrophils # (Manual) 78055 H Differential Comment RBC Morphology See below Poikilocytosis 1+ H PT INR ABG pH ABG pCO2 ABG pO2 ABG HCO3 ABG Total CO2 ABG O2 Saturation ABG Base Excess FiO2 Sodium Potassium Chloride Carbon Dioxide BUN Creatinine Estimated GFR BUN/Creatinine Ratio Glucose Lactate Calcium Magnesium Total Bilirubin AST ALT Alkaline Phosphatase Total Creatine Kinase CK-MB (CK-2) CK-MB (CK-2) Rel Index Troponin I 0.016 Total Protein Albumin Globulin Albumin/Globulin Ratio Lipase Procalcitonin TSH 1.24 D Free T4 1.33 Urine Color Urine Appearance Urine pH Ur Specific [place] Urine Protein Urine Glucose (UA) Urine Ketones Urine Occult Blood Urine Nitrate Urine Bilirubin Ur Bilirubin Confirm Urine Urobilinogen Ur Leukocyte Esterase Urine RBC Urine WBC Ur Squamous Epith Cells Urine Bacteria Hyaline Casts Granular Casts Ur Culture Indicated? Nasal Screen MRSA (PCR) U Opiates 300ng/mL cut Ur Oxycodone Screen Urine Methadone Screen Ur Barbiturates Screen U Tricyclic Antidepress Ur Phencyclidine Scrn Ur Amphetamines Screen U Methamphetamines Scrn Ur MDMA Scrn (Ecstasy) U Benzodiazepines Scrn Urine Cocaine Screen U Marijuana (THC) Screen Ethyl Alcohol SARS-CoV-2 (PCR) 05/04/22 05/04/22 05/04/22 09:58 09:58 09:58 WBC 20.2 H RBC 5.01 Hgb 15.0 Hct 44.5 MCV 88.8 MCH 30.0 MCHC 33.8 RDW 13.7 Plt Count 216 Neut % (Auto) 88.8 H Lymph % (Auto) 6.0 L Boyd % (Auto) 3.9 Eos % (Auto) 1.1 L Baso % (Auto) 0.2 Neut # (Auto) 03162 H Lymph # (Auto) 1200 Boyd # (Auto) 800 Eos # (Auto) 200 Baso # (Auto) 0 Total Counted Seg Neutrophils % Band Neutrophils % Lymphocytes % (Manual) Monocytes % (Manual) Eosinophils % (Manual) Neutrophils # (Manual) Differential Comment RBC Morphology Poikilocytosis PT INR ABG pH ABG pCO2 ABG pO2 ABG HCO3 ABG Total CO2 ABG O2 Saturation ABG Base Excess FiO2 Sodium 142 Potassium 3.2 L Chloride 109 H Carbon Dioxide 26 BUN 52 H Creatinine 0.92 Estimated GFR > 60 BUN/Creatinine Ratio 56.5 H Glucose 120 H Lactate Calcium 7.9 L Magnesium 2.0 Total Bilirubin 1.5 H AST 69 H ALT 98 H Alkaline Phosphatase 101 D Total Creatine Kinase CK-MB (CK-2) CK-MB (CK-2) Rel Index Troponin I < 0.012 Total Protein 5.7 L Albumin 2.6 L Globulin 3.1 Albumin/Globulin Ratio 0.8 L Lipase Procalcitonin TSH Free T4 Urine Color Urine Appearance Urine pH Ur Specific [place] Urine Protein Urine Glucose (UA) Urine Ketones Urine Occult Blood Urine Nitrate Urine Bilirubin Ur Bilirubin Confirm Urine Urobilinogen Ur Leukocyte Esterase Urine RBC Urine WBC Ur Squamous Epith Cells Urine Bacteria Hyaline Casts Granular Casts Ur Culture Indicated? Nasal Screen MRSA (PCR) U Opiates 300ng/mL cut Ur Oxycodone Screen Urine Methadone Screen Ur Barbiturates Screen U Tricyclic Antidepress Ur Phencyclidine Scrn Ur Amphetamines Screen U Methamphetamines Scrn Ur MDMA Scrn (Ecstasy) U Benzodiazepines Scrn Urine Cocaine Screen U Marijuana (THC) Screen Ethyl Alcohol SARS-CoV-2 (PCR) 05/04/22 05/04/22 10:24 23:28 WBC RBC Hgb Hct MCV MCH MCHC RDW Plt Count Neut % (Auto) Lymph % (Auto) Boyd % (Auto) Eos % (Auto) Baso % (Auto) Neut # (Auto) Lymph # (Auto) Boyd # (Auto) Eos # (Auto) Baso # (Auto) Total Counted Seg Neutrophils % Band Neutrophils % Lymphocytes % (Manual) Monocytes % (Manual) Eosinophils % (Manual) Neutrophils # (Manual) Differential Comment RBC Morphology Poikilocytosis PT INR ABG pH 7.42 ABG pCO2 38.5 ABG pO2 22 L* ABG HCO3 25 ABG Total CO2 39 H ABG O2 Saturation 37 L* ABG Base Excess 0.0 FiO2 21 Sodium Potassium Chloride Carbon Dioxide BUN Creatinine Estimated GFR BUN/Creatinine Ratio Glucose Lactate Calcium Magnesium Total Bilirubin AST ALT Alkaline Phosphatase Total Creatine Kinase CK-MB (CK-2) CK-MB (CK-2) Rel Index Troponin I Total Protein Albumin Globulin Albumin/Globulin Ratio Lipase Procalcitonin TSH Free T4 Urine Color Urine Appearance Urine pH Ur Specific [place] Urine Protein Urine Glucose (UA) Urine Ketones Urine Occult Blood Urine Nitrate Urine Bilirubin Ur Bilirubin Confirm Urine Urobilinogen Ur Leukocyte Esterase Urine RBC Urine WBC Ur Squamous Epith Cells Urine Bacteria Hyaline Casts Granular Casts Ur Culture Indicated? Nasal Screen MRSA (PCR) Negative for mrsa U Opiates 300ng/mL cut Ur Oxycodone Screen Urine Methadone Screen Ur Barbiturates Screen U Tricyclic Antidepress Ur Phencyclidine Scrn Ur Amphetamines Screen U Methamphetamines Scrn Ur MDMA Scrn (Ecstasy) U Benzodiazepines Scrn Urine Cocaine Screen U Marijuana (THC) Screen Ethyl Alcohol SARS-CoV-2 (PCR) PFSH Medical History Hypothyroidism Social History household members: none Smoking Status: Never smoker alcohol intake: former Assessment & Plan Assessment & Plan narrative: Karlos Boyd was admitted after being down for a prolonged period of time, admitted with acute rhabdomyolysis, DESMOND, afib with RVR. #Atrial fibrillation w/RVR, acute, present on admission wean from dilt infusion as tolerated echo pending continue to increase beta agustina therapy as tolerated for now, pending TTE for EF for determination of alternative agents. #Rhabomyolysis, acute and present on admission Monitor CKs and daily chemistries #Cellulitis - continue levaquin for now, vanco discontinued given negative MRSA swab. # hypernatremia -151 on admission, likely due to severe dehydration now improved with IV fluids. Can stop IV fluids. # DESMOND -Cr 1.72 on admission, due to hypovolemia. Now improved to 0.92. -fluids as above -daily BMP's # lactic acidemia -LA 3.4 on admission -trended until normal (2.3) with fluids I spent 30 minutes providing critical care management this patient. This excludes time spent in performing separately billed procedures. Reviewed outside records: PCP [facility] notes VTE Prophylaxis: Wells risk score 0 Heparin 5000 units twice daily Dispo: ICU while on dilt infusion. Can be floor care if off diltiazem infusion. Social determinants of health: probable unsafe housing conditions Dispo: probable SNF, will need PT / OT evaluations Code status: full code as discussed with the patient who identifies her son Juan as her surrogate and POA. COVID-19 COVID-19 status: Negative Result date/Date tested (Pos, Neg/Pending): 05/03/22 Time Spent With Patient Critical Care time: I spent a total of [] minutes of critical care time on this patient's care today; this time is exclusive of procedural time. Quality VTE Deep Vein Thrombosis/Pulmonary Embolism Present on Admission: No
[2022-05-04] MEDS: levoFLOXacin 750 MG/150 ML PIGGYBACK 100 MG IV (17:54)
[2022-05-04] MEDS: OXYCODONE IR 5 MG TABLET PO (19:44)
[2022-05-05] VITALS (46 sets, daily range): BP systolic 101–150; BP diastolic 52–86; PULSE 59–129; RESP 16–37; TEMP 36.4–36.8; O2SAT 94–100
--- NOTE | 2022-05-05 | DI.CT.S_ITS ---
PROCEDURE: CT ANGIO HEAD AND NECK INDICATIONS: Stroke TECHNIQUE: Pre-contrast 4.5 mm thick sections acquired from the foramen magnum to the vertex. After the administration of intravenous contrast, 1 mm thick sections acquired from the aortic arch through the [place] of Person. Post-contrast 4.5 mm thick sections then re-acquired from the foramen magnum to the vertex. MIP reformats of the arterial vasculature were utilized. For radiation dose reduction, the following was used: automated exposure control, adjustment of mA and/or kV according to patient size. COMPARISON: None. FINDINGS: Cerebral CT Angiogram: Internal carotid arteries: No acute findings. Intracranial ICA are patent with no significant stenosis. No occlusion. No aneurysm. Anterior cerebral arteries: Hypoplasia/aplasia of the left A1 SHERITA noted. The A2 segment is supplied by a widely patent anterior communicating artery. Remainder of the distal vasculature unremarkable. Middle cerebral arteries: Proximal right M1 MCA occlusion. Distal most MCA branches are perfused through collateral flow. Posterior cerebral arteries: Unremarkable. No significant stenosis. No occlusion. No aneurysm. Basilar artery: Unremarkable. No significant stenosis. No occlusion. No aneurysm. Vertebral arteries: Unremarkable as visualized. Dural venous sinuses: Unremarkable given phase of enhancement. Other: Arterial phase brain parenchyma is unremarkable. Neck CT Angiogram: Internal carotid arteries: Unremarkable. No significant stenosis. No dissection or occlusion. Common carotid arteries: Unremarkable. No significant stenosis. No dissection or occlusion. External carotid arteries: Unremarkable. No occlusion. Vertebral arteries: Unremarkable. No significant stenosis. No dissection or occlusion. Other: Right IJ central venous line in good position Aortic Arch and Mediastinum: Partially visualized aortic arch unremarkable without evidence of aneurysm. Origins of the great vessels unremarkable. IMPRESSION: 1. Right M1 MCA occlusion. Distal most right MCA branches perfused through collaterals. 2. Right IJ central venous line in good position Note: Any reported proximal ICA stenosis was calculated using NASCET guidelines. Approved by: Michael Vallecillo M.D. on 05/05/2022 at 10:41
[2022-05-05 05:43] LABS: Add Manual Diff / Slide Review NO; Basophils Absolute Auto 100 /uL (0-100); Basophils Percent Auto 0.4 % (0-2); Eosinophils Absolute Auto 300 /uL (0-450); Eosinophils Percent Auto 1.7 % (2-4); Hematocrit 43.6 % (36-46); Hemoglobin 14.8 g/dL (12.0-16.0); Lymphocytes Absolute Auto 1300 /uL (1100-4500); Lymphocytes Percent Auto 7.6 % (25-40); Mean Corpuscular HGB Conc 33.9 % (30-36); Mean Corpuscular Hemoglobin 30.1 PG (26-34); Mean Corpuscular Volume 88.6 fL (80-100); Monocytes Absolute Auto 700 /uL (0-900); Monocytes Percent Auto 4.1 % (3-14); Neutrophils Absolute Auto 15100 /uL (1500-7000); Neutrophils Percent Auto 86.2 % (50-75); Platelet Count 157 X10^3/uL (150-400); Red Blood Cell Count 4.92 X10^6/uL (4.0-5.2); Red Cell Distribution Width 13.8 % (11.6-14.8); White Blood Cell Count 17.5 X10^3/uL (4.5-11.0)
[2022-05-05 05:49] LABS: Creatine Kinase 198 U/L (30-135)
[2022-05-05 05:52] LABS: Alanine Aminotransferase 77 IU/L (<35); Albumin 2.4 g/dL (3.5-5.0); Albumin Globulin Ratio 0.8 (1.0-2.8); Alkaline Phosphatase 78 U/L (38-126); Aspartate Aminotransferase 51 IU/L (14-36); BUN Creatinine Ratio 45.3 (6-22); Blood Urea Nitrogen 34 mg/dL (7-17); Calcium 7.5 mg/dL (8.4-10.2); Carbon Dioxide 25 mmol/L (22-32); Chloride 111 mmol/L (98-107); Estimated Glomerular Filt Rate > 60 mL/min (>60); Globulin 2.9 g/dL (1.7-4.1); Glucose 102 mg/dL (80-110); HEMOLYSIS 42 (0-50); Potassium 4.2 mmol/L (3.4-5.1); Sodium 140 mmol/L (137-145); Total Protein 5.3 g/dL (6.3-8.2)
[2022-05-05] MEDS: HEPARIN 5,000 UNIT/ML VIAL 5000 UNIT SUBCUT (08:30)
[2022-05-05] MEDS: METOPROLOL ER 50 MG TABLET PO (08:30)
--- NOTE | 2022-05-05 10:27 | PM.PN.1 ---
Subjective Subjective Date Patient Seen: 05/05/22 Time Patient Seen: 10:27 Interval history: Patient awoken this morning, found to have significant L facial droop, slurred speech, L hemiparesis. Code stroke activated, last known normal was yesterday evening based on nursing staff reports. NIH at least 17 on quick evaluation as noted below in stroke scale. CT head non-contast shows a dense infarct on the R with some edema but no midline shift, in my review of CT from 05/03 there is possibly an older component. CT angio head and neck shows M1 MCA occlusion on the R. Exam Vital Signs (past 8 hours): - 05/05/22 06:25 05/05/22 08:30 05/05/22 07:00 Pulse Rate 94 H 93 H Respiratory Rate 16 Blood Pressure 116/66 123/81 Pulse Oximetry 99 Oxygen Delivery Method Room Air Oxygen Flow Rate 0 Oxygen Delivery Method Room Air Oxygen Flow Rate 0 Narrative Exam Narrative: Gen: Alert, oriented, but now with slurred speech, slightly pale. HEENT: normocephalic, atraumatic, conjunctiva clear, sclera non-icteric, oral mucosa pink and moist. Fixed eye deviation to the R. Neck: supple, full ROM, no JVD, trachea is midline Resp: Lungs CTA, non-labored breathing CV: Regular rate with irregularly irregular rhythm Abd: soft, non-tender, non-distended Skin: multiple large areas of excoriations in her lower abdomen, inner thighs extending to her knees, fairly superficial without necrosis. erythema is present. Lower left leg also has cellulitis with erythema, warmth and tenderness, swelling of middle toes. DP +2 bilaterally. L > R bilateral lower extremity edema. Neuro: alert, NIH as discussed below. Fixed eye deviation to the R, with L hemiparesis, L deficits in sensation to light touch. Extremities: peripheral edema without joint effusions. Objective Labs 05/05/22 05:30 05/05/22 05:30 Labs: Laboratory Results - last 24 hr 05/04/22 05/04/22 05/04/22 09:58 09:58 10:24 WBC 20.2 H RBC 5.01 Hgb 15.0 Hct 44.5 MCV 88.8 MCH 30.0 MCHC 33.8 RDW 13.7 Plt Count 216 Neut % (Auto) 88.8 H Lymph % (Auto) 6.0 L [place] % (Auto) 3.9 Eos % (Auto) 1.1 L Baso % (Auto) 0.2 Neut # (Auto) 24719 H Lymph # (Auto) 1200 [place] # (Auto) 800 Eos # (Auto) 200 Baso # (Auto) 0 Sodium Potassium Chloride Carbon Dioxide BUN Creatinine Estimated GFR BUN/Creatinine Ratio Glucose Calcium Magnesium Total Bilirubin AST ALT Alkaline Phosphatase Total Creatine Kinase Troponin I < 0.012 Total Protein Albumin Globulin Albumin/Globulin Ratio Nasal Screen MRSA (PCR) Negative for mrsa 05/05/22 05/05/22 05/05/22 05:30 05:30 05:30 WBC 17.5 H RBC 4.92 Hgb 14.8 Hct 43.6 MCV 88.6 MCH 30.1 MCHC 33.9 RDW 13.8 Plt Count 157 Neut % (Auto) 86.2 H Lymph % (Auto) 7.6 L [place] % (Auto) 4.1 Eos % (Auto) 1.7 L Baso % (Auto) 0.4 Neut # (Auto) 19488 H Lymph # (Auto) 1300 [place] # (Auto) 700 Eos # (Auto) 300 Baso # (Auto) 100 Sodium 140 Potassium 4.2 Chloride 111 H Carbon Dioxide 25 BUN 34 H Creatinine 0.75 Estimated GFR > 60 BUN/Creatinine Ratio 45.3 H Glucose 102 Calcium 7.5 L Magnesium 2.0 Total Bilirubin 1.0 AST 51 H ALT 77 H Alkaline Phosphatase 78 Total Creatine Kinase 198 H D Troponin I Total Protein 5.3 L Albumin 2.4 L Globulin 2.9 Albumin/Globulin Ratio 0.8 L Nasal Screen MRSA (PCR) [facility] Medical History Hypothyroidism Social History household members: none Smoking Status: Never smoker alcohol intake: former Assessment & Plan Assessment & Plan narrative: Karlos Boyd was admitted after being down for a prolonged period of time, admitted with acute rhabdomyolysis, DESMOND, afib with RVR and developed stroke symptoms first noted on HD#2, found to have large MCA occlusions, transferring to [facility] for further monitoring. #R MCA CVA - - first noticed with slurred speech on HD#2, 2/ in the AM when patient awoke around 10am. Last known normal approx. 10 pm yesterday evening. - [facility] code stroke recommended transfer for monitoring in setting of large vesssel occlusion - CTA shows M1 MCA occlusion on the R. - rectal asa 300 mg given. #Atrial fibrillation w/RVR, acute, present on admission - now off of dilt - echo with EF 45-50%, with global hypokinesis, no significant valvular pathologies. - rate controlled with beta agustina thearpy. - unable to anticoagulate at this time with new MCA infarct. #Rhabomyolysis, acute and present on admission, resolved - now resolved with IV fluids given, stopped IV fluids and CK now improved to 198. #Cellulitis - continue levaquin for now, vanco discontinued given negative MRSA swab. # hypernatremia, resolved - resolved with fluids # DESMOND- resolved # lactic acidemia, resolved I spent 60 minutes providing critical care management this patient, including code stroke management. This excludes time spent in performing separately billed procedures. Dispo: transferring to [facility] for monitoring in setting of large vessel occlusion. Code status: full code as discussed with the patient who identifies her son Juan as her surrogate and POA. COVID-19 COVID-19 status: Negative Result date/Date tested (Pos, Neg/Pending): 05/03/22 Time Spent With Patient Critical Care time: I spent a total of [] minutes of critical care time on this patient's care today; this time is exclusive of procedural time. Scores NIHSS Level of Conciousness: Alert, keenly responsive Ask month/age: Answers both questions correctly. Open/close eyes, close hand: Performs both tasks correctly Best gaze horizontal: Forced deviation or total gaze paresis not overcome Visual ramirez: Complete hemianopia Facial palsy: Partial paralysis, total or near total paralysis of lower face Left arm drift: No effort against gravity Right arm drift: Some effort against gravity, cannot maintain, drifts down to bed Left leg drift: No effort against gravity Right leg drift: Some effort against gravity, cannot maintain, drifts down to bed Limb ataxia: Absent Sensory on face/arms/legs: Severe to total sensory loss, not aware of touch, coma, quadriplegic Best language: Mild to moderate, slurs some words Dysarthria: Mild to mod,some slurring Extinction or inattention: Profound catrina-inattention. Does not recognize own hand, one side Total NIH Stroke scale score: 22 Quality VTE Deep Vein Thrombosis/Pulmonary Embolism Present on Admission: No
--- NOTE | 2022-05-05 10:41 | DI.CT.S_ITS ---
PROCEDURE: CT STROKE INDICATIONS: L weakness TECHNIQUE: Noncontrast 4.5 mm thick angled axial sections acquired from the foramen magnum to the vertex, with coronal reformats. For radiation dose reduction, the following was used: automated exposure control, adjustment of mA and/or kV according to patient size. COMPARISON: [facility], CT, CT HEAD/BRAIN WO CON, 05/03/2022, 16:25. FINDINGS: Image quality: Excellent. CSF spaces: Basal cisterns are patent. No extra-axial fluid collections. Ventricles are normal in size and shape. Brain: Blurring of the benito-white junction with sulcal effacement and hypodensity noted in the entire territory the right MCA. No midline shift present. No intracranial hemorrhage herniation concurrently. Dense right M1 MCA noted proximally. Skull and face: Calvarium and visualized facial bones are intact, without suspicious lesions. Sinuses: Visualized sinuses and mastoids are clear. IMPRESSION: Dense right MCA infarct. Right MCA territorial edema present without current midline shift, hemorrhage or herniation. This study fulfills neurological imaging criteria for inclusion or exclusion of acute stroke therapies based on available published neurological imaging guidelines. Note: Critical results were discussed with Dr. Cifuentes at 10:01 AM [place] time on 05/05/22 Approved by: Michael Vallecillo M.D. on 05/05/2022 at 10:03
[2022-05-05 11:10] LABS: INR 1.4 (0.9-1.3); Prothrombin Time 15.7 SECONDS (10.1-12.7)
[2022-05-05 11:13] LABS: PTT Partial Thromboplastin Tim 28 SECONDS (26-36)
--- NOTE | 2022-05-05 12:04 | PC.NURSE ---
Addendum entered by Gianna Rubio R.N. 05/05/22 14:50: 1540 Pt loaded into [facility], transferring to [facility] via ambulance, report faxed to accepting hospital, no further pt contact at this time Original Note: Dayshift note: Pt resting in bed with eyes closed, rouses to voice during morning vitals at 8am, speech was slightly slurred, but was attributed to pt being very tired and wanting to go back to sleep, morning meds were given with minimal difficulty, pt stated that she wanted to go back to sleep. This nurse went in to room to reassess pt and set up for breakfast, it was noted that the pt was slurring words significantly, at this time a BE FAST was done, pt scored a 5. 1015 Hospitalist was notified and at bedside, code STROKE called 1018 glucose testing completed -FSBG 74 1020 Provider initiated code stroke order set, swallow screen completed, pt failed swallow 1025 NIH screen completed- score [address] scan 1053 EKG completed, labs drawn 1100 Ct results called to Dr Cifuentes Per Dr Cifuentes pt to transfer to [facility] for closer monitoring
--- NOTE | 2022-05-05 12:17 | P.DS_ITS ---
History of Present Illness History of Present Illness Date Patient Seen: 05/05/22 Time Patient Seen: 12:17 Chief complaint: GLF, Afib RVR, weakness Narrative: Per Dr. Adames Karlos Boyd is a 71-year-old female with past medical history of A-fib not on anticoag, obesity, venous insufficiency, hypothyroidism who presents via EMS after being found face down for 5 days in the bathroom at home. Patient states she lives alone and friday evening she went to get off the toilet and her legs gave out and she slumped to the floor. She lay there facedown unable to get up and unable to call anyone. She then laid there for approx 5 days before her therapist notified police to check on her because she hadn't heard from her which was abnormal. Police found her on the floor covered in feces and urine. Patient says she hadn't eaten or had any water during that time. She is unsure why she couldn't get up, just saying she was weak. She denies CP, vomiting, abd pain, dysuria or diarrhea. In the ED found to have Na 151, Cr 1.72, LA 3.4, CK of 856, procal 1.26 and WBC 29, Hgb 18. Given vanco due to multiple abx allergies. Started on fluids. Discharge Providers Provider Date of admission: 05/03/22 22:44 Discharge Date: 05/05/22 Primary care physician: Jana Weber MD Consults: 05/03/22 17:22 Consult to Occupational Therapy Evaluate & Treat Comment: Physician Instructions: Evaluate and treat 05/03/22 17:29 Consult to Physical Therapy Evaluate & Treat Comment: Physician Instructions: Evaluate and Treat Discharge provider: Rafa Cifuentes DO Summary Hospital Course Discharge Diagnosis: #R MCA CVA - #Atrial fibrillation w/RVR, acute, present on admission #Rhabomyolysis, acute and present on admission, resolved #Cellulitis # hypernatremia, resolved # DESMOND # lactic acidemia, resolved Hospital Course: This is a 71-year-old female with a past medical history of atrial fibrillation (home treated with B12 per patient) who presented to the emergency room and was admitted with atrial fibrillation with RVR, hypernatremia, DESMOND, and lactic acidosis after having been down on the floor of her bathroom for approximately 5 days prior to arrival. For her AFib with RVR she was initially started on a diltiazem infusion which was quickly weaned off with initiation of oral metoprolol. Echocardiogram revealed an EF of 45-50% with global hypokinesis but no significant valvular pathologies. Central line was initially placed for difficult venous access on hospital day [address] at this time. As result of her being down for a prolonged period of time she has a number abrasions in her extremities, thighs, and abdomen. She was initially started on Levaquin and vancomycin for cellulitis, MRSA swab was negative from her nares so vancomycin was discontinued and she remained on levofloxacin. The appearance of her abrasions, and cellulitis has been slowly improving over the 2 days since her admission. Anticoagulation had not been initiated as of yet but she was given heparin subQ for DVT prophylaxis. Her rhabdomyolysis was mild with a CK just over 800 which improved to 198 with IV fluids. Her hypernatremia, with a sodium of 151 admission, also improved with IV fluids to normal. She had an elevated creatinine of 1.72 which has improved to 0.75 today, again with rehydration. Her lactate of 3.4 improved to normal with administration of fluids as well. Unfortunately, on the morning May 05, or hospital day 2, the patient awoke with left-sided hemiparesis, facial droop, and sensory loss. NIH was 22. Last known normal was approximately 10:00 p.m. the night before, or May 04 according to nursing staff. Code stroke was initiated at 10:18 AM, CT and CT angiogram revealed large MCA infarct with occlusion of her M1 segment of her right MCA. There was no recommendation for thrombectomy per the tele stroke service, and she is outside the window based on her last known normal for tPA. Stroke service did recommend transfer (Dr. Kaur) to [facility] for monitoring in the setting of a large vessel occlusion. Discussed with patient and son regarding recommendation for monitoring at [facility], and they were agreeable for transfer. Goals of care discussion with patient and son was performed, taking 20 minutes to perform. She states she would be interested in doing all that she could to get better, if there was a possibility of recovery. Specifically with feeding tube discussion, she would be interested in possible surgical feeding tube, but not if it was expected to be life-long at this time. We discussed that it may be difficult to tell fpc her prognosis, but at this time she wishes to remain full code. Time Spent with Patient Time spent: Greater than 30 minutes Exam Vital Signs (past 8 hours): - 05/05/22 06:25 05/05/22 08:30 05/05/22 07:00 Temperature Pulse Rate 94 H 93 H Respiratory Rate 16 Blood Pressure 116/66 123/81 Pulse Oximetry 99 Oxygen Delivery Method Room Air Oxygen Flow Rate 0 05/05/22 08:10 05/05/22 10:20 05/05/22 10:55 Temperature 98.3 F Pulse Rate 109 H 103 H 83 Respiratory Rate 21 20 Blood Pressure 123/81 123/70 131/81 Pulse Oximetry 100 100 100 Oxygen Delivery Method Oxygen Flow Rate 0 0 Oxygen Delivery Method Room Air Oxygen Flow Rate 0 Narrative Exam Narrative: Gen: Alert, oriented, but now with slurred speech, slightly pale. HEENT: normocephalic, atraumatic, conjunctiva clear, sclera non-icteric, oral mucosa pink and moist. Fixed eye deviation to the R. Neck: supple, full ROM, no JVD, trachea is midline Resp: Lungs CTA, non-labored breathing CV: Regular rate with irregularly irregular rhythm Abd: soft, non-tender, non-distended Skin: multiple large areas of excoriations in her lower abdomen, inner thighs extending to her knees, fairly superficial without necrosis. erythema is present. Lower left leg also has cellulitis with erythema, warmth and ten derness, swelling of middle toes. DP +2 bilaterally. L > R bilateral lower extremity edema. Neuro: alert, NIH 22. Fixed eye deviation to the R, with L hemiparesis, L deficits in sensation to light touch. Extremities: peripheral edema without joint effusions. Objective Imaging CTA - Head and Neck: Radiologist's impression: PROCEDURE:? CT ANGIO HEAD AND NECK ? INDICATIONS:? Stroke ? TECHNIQUE:? Pre-contrast 4.5 mm thick sections acquired from the foramen magnum to the vertex.? After the administration of intravenous contrast, 1 mm thick sections acquired from the aortic arch through the [place] of Person.? Post-contrast 4.5 mm thick sections then re- acquired from the foramen magnum to the vertex.? MIP reformats of the arterial vasculature were utilized.? For radiation dose reduction, the following was used:? automated exposure control, adjustment of mA and/or kV according to patient size.? ? COMPARISON:? None. ? FINDINGS: ? Cerebral CT Angiogram: ? Internal carotid arteries:? No acute findings.? Intracranial ICA are patent with no significant stenosis.? No occlusion.? No aneurysm. ? Anterior cerebral arteries:? Hypoplasia/aplasia of the left A1 SHERITA noted. The A2 segment is supplied by a widely patent anterior communicating artery. Remainder of the distal vasculature unremarkable. ? Middle cerebral arteries:? Proximal right M1 MCA occlusion.? Distal most MCA branches are perfused through collateral flow. ? Posterior cerebral arteries:? Unremarkable.? No significant stenosis.? No occlusion.? No aneurysm. ? Basilar artery:? Unremarkable.? No significant stenosis.? No occlusion.? No aneurysm. ? Vertebral arteries:? Unremarkable as visualized. ? Dural venous sinuses:? Unremarkable given phase of enhancement. ? Other:? Arterial phase brain parenchyma is unremarkable. ? Neck CT Angiogram: ? Internal carotid arteries:? Unremarkable.? No significant stenosis.? No dissection or occlusion. ? Common carotid arteries:? Unremarkable.? No significant stenosis.? No dissection or occlusion. ? External carotid arteries:? Unremarkable.? No occlusion. ? Vertebral arteries:? Unremarkable.? No significant stenosis.? No dissection or occlusion. ? Other:? Right IJ central venous line in good position ? Aortic Arch and Mediastinum:? Partially visualized aortic arch unremarkable without evidence of aneurysm. Origins of the great vessels unremarkable. ? IMPRESSION: ? 1. Right M1 MCA occlusion.? Distal most right MCA branches perfused through collaterals. ? 2. Right IJ central venous line in good position ? Labs 05/05/22 05:30 05/05/22 05:30 Labs: Laboratory Results - last 24 hr 05/05/22 05/05/22 05/05/22 05:30 05:30 05:30 WBC 17.5 H RBC 4.92 Hgb 14.8 Hct 43.6 MCV 88.6 MCH 30.1 MCHC 33.9 RDW 13.8 Plt Count 157 Neut % (Auto) 86.2 H Lymph % (Auto) 7.6 L [place] % (Auto) 4.1 Eos % (Auto) 1.7 L Baso % (Auto) 0.4 Neut # (Auto) 99679 H Lymph # (Auto) 1300 [place] # (Auto) 700 Eos # (Auto) 300 Baso # (Auto) 100 PT INR APTT Sodium 140 Potassium 4.2 Chloride 111 H Carbon Dioxide 25 BUN 34 H Creatinine 0.75 Estimated GFR > 60 BUN/Creatinine Ratio 45.3 H Glucose 102 Calcium 7.5 L Magnesium 2.0 Total Bilirubin 1.0 AST 51 H ALT 77 H Alkaline Phosphatase 78 Total Creatine Kinase 198 H D Total Protein 5.3 L Albumin 2.4 L Globulin 2.9 Albumin/Globulin Ratio 0.8 L 05/05/22 10:55 WBC RBC Hgb Hct MCV MCH MCHC RDW Plt Count Neut % (Auto) Lymph % (Auto) [place] % (Auto) Eos % (Auto) Baso % (Auto) Neut # (Auto) Lymph # (Auto) [place] # (Auto) Eos # (Auto) Baso # (Auto) PT 15.7 H INR 1.4 H APTT 28 Sodium Potassium Chloride Carbon Dioxide BUN Creatinine Estimated GFR BUN/Creatinine Ratio Glucose Calcium Magnesium Total Bilirubin AST ALT Alkaline Phosphatase Total Creatine Kinase Total Protein Albumin Globulin Albumin/Globulin Ratio PFSH Medical History Hypothyroidism Social History household members: none Smoking Status: Never smoker alcohol intake: former Discharge Plan Discharge Plan Disposition: Xfer Acute Care Hospital Discharge orders & Medications Follow up/Referrals: Jana Weber MD [Primary Care Provider] - Discharge Data Primary Care Provider: Jana Weber Quality VTE Deep Vein Thrombosis/Pulmonary Embolism Present on Admission: No
[2022-05-05] MEDS: ASPIRIN 300 MG SUPP PR (12:29)
--- NOTE | 2022-05-05 15:46 | CM.DPC ---
DCP: Pt had a CVA with Left sided Jose A while ip today. She was transferred to [facility] for further care. Britta Gary RN Case Manager
[2022-05-06 07:08] LABS: HBsAg Screen Negative (Negative); Hepatitis A Antibody IgM Negative (Negative); Hepatitis B Core Antibody IgM Negative (Negative); Hepatitis C Antibody <0.1 s/co ratio (0.0-0.9)
[2022-06-02 19:21] LABS: pH ABG 7.42 (7.35-7.45)
== END 2022-05-05 14:49 | disposition short-term general hospital (02) | DRG 308 ==
LOC: ED 17:25 → AC 17:38 → ICU 22:44 → ED 22:45 → ICU 22:45
PROVIDERS: Internal Medicine; Nurse Practitioner Family; Admitting Provider Student in an Organized Health Care Education/Training Program; Emergency Provider Emergency Medicine; Family Provider Family Medicine; PCP Family Medicine; Referring Provider Emergency Medicine; Visit Provider Student in an Organized Health Care Education/Training Program
DX: I48.91 Unspecified atrial fibrillation (principal); I63.511 Cerebral infarction due to unspecified occlusion or stenosis of right middle cerebral artery; E87.0 Hyperosmolality and hypernatremia; M62.82 Rhabdomyolysis; N17.9 Acute kidney failure, unspecified; L03.90 Cellulitis, unspecified; E87.20 Acidosis, unspecified; R47.81 Slurred speech; R29.810 Facial weakness; R29.725 NIHSS score 25; Z20.822 Contact with and (suspected) exposure to COVID-19
CPT/HCPCS: 36415; 36592; 36600; 70450; 70496; 70498; 71045; 80048; 80053; 80074; 80305; 80320; 81001; 82550; 82553; 82805; 83605; 83690; 83735; 84145; 84439; 84443; 84484; 85007; 85025; 85610; 85730; 87086; 87635; 87797; 93005; 93010; 93306; 96365; 96366; 96375; 97163; 99284; C9803; J1170; J1642; J1644; J1956; Q9967